=== PATIENT | male | born 1960 | race Caucasian/White ===

== ENCOUNTER 2017-04-01 11:35 | Observation (INO) | payer MEDICARE, MEDICAID ==
[2017-04-01] VITALS (9 sets, daily range): BP systolic 135–169; BP diastolic 68–92; PULSE 78–88; RESP 14–20; TEMP 97.6–98.7; O2SAT 96–98
[~2017-04-01 11:35] MED LIST: ALLO100T PO; ATOR40TA PO; COUM2.5T PO; DUONI NEB; FLUO40CA PO; PACE200T4 PO; PLAV75TA PO; POTA20IN3 PO; [UNRECOGNIZED DRUG - CODE] IV PUSH
[2017-04-01] MEDS ORDERED: OXYC1CAP PO (12:09)
[2017-04-01] MEDS ORDERED: VALG450 PO (12:09)
[2017-04-01] MEDS ORDERED: MYCO250 PO (12:09)
[2017-04-01] MEDS ORDERED: DAPT250I IV (12:09)
[2017-04-01] MEDS ORDERED: PANT40TA3 PO (12:09)
[2017-04-01] MEDS ORDERED: FLUO60TA PO (12:09)
[2017-04-01] MEDS ORDERED: CLOT10TR PO (12:09)
[2017-04-01] MEDS ORDERED: MULTTAB67 PO (12:09)
[2017-04-01] MEDS ORDERED: PRAV20TA2 PO (12:09)
[2017-04-01] MEDS ORDERED: TACR0.5 PO (12:09)
[2017-04-01] MEDS ORDERED: PRED2.5T PO (12:09)
[2017-04-01] MEDS ORDERED: CEFE2INJ5 IV (12:09)
[2017-04-01] MEDS ORDERED: HYDR-3799 PO (12:09)
[2017-04-01] MEDS ORDERED: MORPHINE SULFATE 4 MG/ML INJ IV PUSH ONE ×2 (12:30→14:30)
--- NOTE | 2017-04-01 12:35 | PD ---
HPI Chief Complaint: Chest Pain Time Seen by Provider: 12:03 Travel History International Travel<30 days: No Contact w/Intl Traveler<30days: No Traveled to known affect area: No History of Present Illness HPI 56yo M with PMH of nonischemic cardiomyopathy s/p heart transplant 10/2016 at Count includes the [facility] (Therapy Director Dr. Camacho), pancreatic cancer not on chemo (follows with oncologist at [facility]) presents to the ED with c/o chest pain and abdominal pain for 2 weeks. States chest pain is left sided, sharp, intermittent, nonradiating. Associated with sob. Abdominal pain has been constant for 2 weeks and associated with nonbloody diarrhea. Pt states abdominal pain goest from left to right. Denies any fever, cough, dysuria, hematuria. PFSH Past Medical History Hx Anticoagulant Therapy: Yes (WARFARIN) Arthritis: Yes Asthma: No Anxiety: Yes Depression: Yes Heart Rhythm Problems: Yes (AFIB) Cancer: No Cardiac Catheterization: Yes Cardiovascular Problems: Yes High Cholesterol: Yes Chest Pain: Yes Congestive Heart Failure: Yes COPD: Yes Cerebrovascular Accident: Yes (POSSIBLE, WAS PARLYSIS OF LEFT SIDE OF BODY MAR 2014) Diminished Hearing: No Endocrine: No Gastrointestinal Disorders: Yes GERD: Yes Gout: Yes Genitourinary: Yes Hypertension: Yes Immune Disorder: No Kidney Stones: No Musculoskeletal: Yes Neurologic: Yes Psychiatric: Yes Reproductive: No Respiratory: Yes Migraines: No Renal Failure: Yes (HX. ARF) Seizures: No Sleep Apnea: No Ulcer: No Past Surgical History Abdominal Surgery: Yes (APPENDECTOMY) AICD: Yes Appendectomy: Yes Arteriovenous Shunt: No Body Medical Devices: CARDIAC STENTS Cardiac Surgery: Yes (STENTS) Coronary Stent: Yes (13 STENTS) Ear Surgery: No Endocrine Surgery: No Eye Surgery: No Genitourinary Surgery: No Gynecologic Surgery: No Insulin Pump: No Joint Replacement: No Oral Surgery: No Pacemaker: Yes (DEFIBRILLATOR 2013) Other Surgery: Yes Social History Alcohol Use: No Tobacco Use: No Substance Use: No Allergies-Medications (Allergen,Severity, Reaction): Coded Allergies: diazepam (Unverified Allergy, Severe, 02/27/17) lorazepam (Unverified Allergy, Severe, 02/27/17) Reported Meds & Prescriptions Reported Meds & Active Scripts Active Reported Valcyte (Valganciclovir) 450 Mg Tab 450 Mg PO DAILY Prograf (Tacrolimus) 0.5 Mg Cap 1.5 Mg PO BID Prednisone 2.5 Mg Tab 2.5 Mg PO DAILY Pravastatin 20 Mg Tab 20 Mg PO DAILY Pantoprazole (Pantoprazole Sodium) 40 Mg Tab 40 Mg PO DAILY Oxycodone (Oxycodone HCl) 5 Mg Cap 5 Mg PO Q6H PRN Clotrimazole Crystal (Clotrimazole) 10 Mg Troc 10 Mg PO Q6HR Cellcept (Mycophenolate Mofetil) 250 Mg Cap 750 Mg PO BID Multiple Vitamin 1 Tab 1 Tab PO DAILY Hydralazine HCl 25 Mg Tablet 25 Mg PO Q8HR Fluoxetine (Fluoxetine HCl) 60 Mg Tab 60 Mg PO DAILY Daptomycin Inj (Daptomycin) 500 Mg Vial 500 Mg IV Q24H Must dilute in appropriate IV Fluid prior to administration Cefepime Inj (Cefepime HCl) 2 Gram Inj 2 Gm IV Q12HR Review of Systems Except as stated in HPI: all other systems reviewed are Neg Physical Exam Narrative GENERAL: 56yo M in moderate distress. SKIN: Focused skin assessment warm/dry. HEAD: Atraumatic. Normocephalic. EYES: Pupils equal and round. No scleral icterus. No injection or drainage. ENT: No nasal bleeding or discharge. Mucous membranes pink and moist. NECK: Trachea midline. No JVD. CARDIOVASCULAR: Regular rate and rhythm. No murmur appreciated. RESPIRATORY: No accessory muscle use. Clear to auscultation. Breath sounds equal bilaterally. GASTROINTESTINAL: Abdomen soft, +TTP LUQ, RUQ, epigastric, periumbilical. Large midline surgical scar. MUSCULOSKELETAL: No obvious deformities. No clubbing. No cyanosis. No edema. NEUROLOGICAL: Awake and alert. No obvious cranial nerve deficits. Motor grossly within normal limits. Normal speech. PSYCHIATRIC: Appropriate mood and affect; insight and judgment normal. Data Data Last Documented VS Vital Signs Date Time Temp Pulse Resp B/P (MAP) Pulse Ox O2 Delivery O2 Flow Rate FiO2 04/01/17 16:09 16 04/01/17 14:00 88 135/68 (90) 98 Room Air 04/01/17 12:01 2.00 04/01/17 11:56 97.6 Orders Orders Basic Metabolic Panel (Bmp) (04/01/17 12:24) Complete Blood Count With Diff (04/01/17 12:24) Lipase (04/01/17 12:24) Prothrombin Time / Inr (Pt) (04/01/17 12:24) Act Partial Throm Time (Ptt) (04/01/17 12:24) Urinalysis - C+S If Indicated (04/01/17 12:24) Iv Access Insert/Monitor (04/01/17 12:24) Ecg Monitoring (04/01/17 12:24) Oximetry (04/01/17 12:24) Morphine Inj (Morphine Inj) (04/01/17 12:30) Sodium Chloride 0.9% Flush (Ns Flush) (04/01/17 12:30) Electrocardiogram (04/01/17 12:24) Troponin I (04/01/17 12:24) Ct Abd/Pel W/O Iv Contrast (04/01/17 ) Ct Thorax/ Chest Wo Iv Contras (04/01/17 ) Hepatic Functional Panel (04/01/17 13:54) Morphine Inj (Morphine Inj) (04/01/17 14:30) Clotrimazole (Mycelex) (04/01/17 18:00) Fluoxetine (Prozac) (04/02/17 09:00) Hydralazine (Apresoline) (04/01/17 22:00) Mycophenolate Mofetil (Cellcept) (04/01/17 21:00) Oxycodone (Roxicodone) (04/01/17 16:45) Pantoprazole (Protonix) (04/02/17 09:00) Pravastatin (Pravachol) (04/02/17 09:00) Tacrolimus (Prograf) (04/01/17 21:00) Multivitamin (Theragran) (04/02/17 09:00) Prednisone (Deltasone) (04/02/17 09:00) Admit Order (Ed Use Only) (04/01/17 16:34) Place In Observation (04/01/17 ) Vital Signs (Adult) Q4H (04/01/17 16:33) Activity Oob With Assistance (04/01/17 16:33) Tire Care Manager / Telemetry .CONTINUOUS (04/01/17 16:33) Diet Heart Healthy (04/01/17 Dinner) Sodium Chloride 0.9% Flush (Ns Flush) (04/01/17 16:45) Sodium Chloride 0.9% Flush (Ns Flush) (04/01/17 21:00) Acetaminophen (Tylenol) (04/01/17 16:45) Ondansetron Inj (Zofran Inj) (04/01/17 16:45) Temazepam (Restoril) (04/01/17 16:45) Basic Metabolic Panel (Bmp) (04/02/17 06:00) Complete Blood Count With Diff (04/02/17 06:00) Troponin I (04/01/17 16:33) Troponin I (04/01/17 22:33) Resp Oxygen Vladimir C Titrat 1-4 L (04/01/17 ) Pt Request For Service (04/01/17 16:33) Case Management Consult (04/01/17 16:33) Enoxaparin Inj (Lovenox Inj) (04/01/17 18:00) Naloxone Inj (Narcan Inj) (04/01/17 16:45) Docusate Sodium-Senna (Brittanie-Colace) (04/01/17 21:00) Magnesium Hydroxide Liq (Milk Of Magnesi (04/01/17 16:45) Sennosides (Senokot) (04/01/17 16:45) Bisacodyl Supp (Dulcolax Supp) (04/01/17 16:45) Lactulose Liq (Lactulose Liq) (04/01/17 16:45) Morphine Inj (Morphine Inj) (04/01/17 16:45) Labs Laboratory Tests Test 04/01/17 12:30 White Blood Count 4.4 TH/MM3 Red Blood Count 4.01 MIL/MM3 Hemoglobin 12.6 GM/DL Hematocrit 37.9 % Mean Corpuscular Volume 94.5 FL Mean Corpuscular Hemoglobin 31.3 PG Mean Corpuscular Hemoglobin Concent 33.2 % Red Cell Distribution Width 14.5 % Platelet Count 288 TH/MM3 Mean Platelet Volume 7.5 FL Neutrophils (%) (Auto) 67.1 % Lymphocytes (%) (Auto) 20.6 % Monocytes (%) (Auto) 10.2 % Eosinophils (%) (Auto) 1.0 % Basophils (%) (Auto) 1.1 % Neutrophils # (Auto) 2.9 TH/MM3 Lymphocytes # (Auto) 0.9 TH/MM3 Monocytes # (Auto) 0.4 TH/MM3 Eosinophils # (Auto) 0.0 TH/MM3 Basophils # (Auto) 0.0 TH/MM3 CBC Comment AUTO DIFF Differential Total Cells Counted 100 Neutrophils % (Manual) 63 % Band Neutrophils % 7 % Lymphocytes % 17 % Monocytes % 12 % Eosinophils % 1 % Neutrophils # (Manual) 3.1 TH/MM3 Differential Comment FINAL DIFF MANUAL Platelet Estimate NORMAL Platelet Morphology Comment NORMAL Red Cell Morphology Comment NORMAL Prothrombin Time 11.4 SEC Prothromb Time International Ratio 1.0 RATIO Activated Partial Thromboplast Time 24.1 SEC Blood Urea Nitrogen 21 MG/DL Creatinine 1.78 MG/DL Random Glucose 104 MG/DL Calcium Level 8.4 MG/DL Sodium Level 143 MEQ/L Potassium Level 3.3 MEQ/L Chloride Level 112 MEQ/L Carbon Dioxide Level 19.8 MEQ/L Anion Gap 11 MEQ/L Estimat Glomerular Filtration Rate 40 ML/MIN Total Bilirubin 0.5 MG/DL Direct Bilirubin 0.1 MG/DL Indirect Bilirubin 0.4 MG/DL Aspartate Amino Transf (AST/SGOT) 19 U/L Alanine Aminotransferase (ALT/SGPT) 10 U/L Alkaline Phosphatase 58 U/L Troponin I LESS THAN 0.02 NG/ML Total Protein 6.6 GM/DL Albumin 3.5 GM/DL Lipase 94 U/L [facility] Medical Decision Making Medical Screen Exam Complete: Yes Emergency Medical Condition: Yes Interpretation(s) EKG: NSR 86bpm. RBBB. Differential Diagnosis ACS vs. pericardial effusion vs. metastatic cancer vs. Pneumonia Narrative Course 56yo M with history of heart implant and pancreatic cancer here with chest pain and abdominal pain. Labs reviewed, no leukocytosis. Troponin negative. BUN/creatinine mildly elevated at 21/1.78. CTa/p showed stranding in pancreatic head region. May reflect acute pancreatitis. However, lipase is only 94. CT chest showed groundglass opacities in posterior upper lobe that may be chronic. Pt has been given multiple IV morphine and still in a lot of pain. Also would like to observe him for serial EKG and cardiac enzymes. Discussed with Dr. Ferreira and accepted to her service. Diagnosis Primary Impression: Intractable abdominal pain Additional Impression: Chest pain Qualified Codes: R07.9 - Chest pain, unspecified Susana Zapien DO Apr 01, 2017 12:34
[2017-04-01] MEDS: SODIUM CHLORIDE 0.9% FLUSH 10 ML FLUSH IV FLUSH PRN ×2 (12:39→14:42)
--- NOTE | 2017-04-01 12:39 | EKG ---
Date Performed: 04/01/2017 Time Performed: 12:10:43 PTAGE: 56 years EKG: Sinus rhythm RIGHT BUNDLE BRANCH BLOCK AND POSSIBLE RIGHT VENTRICULAR HYPERTROPHY LEFT POSTERIOR FASCICULAR BLOCK ABNORMAL ECG NO PREVIOUS TRACING DOCTOR: Bethel Chadwick Interpretating Date/Time 04/01/2017 12:37:55
[2017-04-01 12:59] LABS: AUTOMATED NEUTROPHIL # 2.9 TH/MM3 (1.8-7.7); BASOPHIL % 1.1 % (0.0-2.0); HEMATOCRIT 37.9 % (39.0-51.0); LYMPH % 20.6 % (9.0-44.0); LYMPHOCYTE # 0.9 TH/MM3 (1.0-4.8); MEAN CELL VOLUME 94.5 FL (80.0-100.0); MEAN CORPUSCULAR HEMOGLOBIN 31.3 PG (27.0-34.0); MEAN CORPUSCULAR HGB CONC 33.2 % (32.0-36.0); MONO % 10.2 % (0.0-8.0); NEUT % 67.1 % (16.0-70.0); PLATELET COUNT 288 TH/MM3 (150-450); RED BLOOD COUNT 4.01 MIL/MM3 (4.50-5.90); RED CELL DISTRIBUTION WIDTH 14.5 % (11.6-17.2); WHITE BLOOD COUNT 4.4 TH/MM3 (4.0-11.0)
[2017-04-01 13:04] LABS: HEMO FLAGS AUTO DIFF
[2017-04-01 13:10] LABS: APTT (PATIENT) 24.1 SEC (24.3-30.1); PROTHROMBIN TIME - PATIENT 11.4 SEC (9.8-11.6)
[2017-04-01 13:19] LABS: ANION GAP 11 MEQ/L (5-15); BICARBONATE 19.8 MEQ/L (21.0-32.0); BLOOD UREA NITROGEN 21 MG/DL (7-18); CHLORIDE 112 MEQ/L (98-107); GLOMERULAR FILTRATION RATE 40 ML/MIN (>89); POTASSIUM 3.3 MEQ/L (3.5-5.1); SODIUM (NA) 143 MEQ/L (136-145)
[2017-04-01 13:41] LABS: BANDS 7 % (0-6); EOSINOPHILS 1 % (0-4); NEUTROPHIL # MANUAL DIFF 3.1 TH/MM3 (1.8-7.7); PLATELET ESTIMATE SMEAR NORMAL (NORMAL); PLATELET MORPHOLOGY NORMAL (NORMAL); POLYS (SEG NEUTROPHILS) 63 % (16-70); SCAN/DIFF FINAL DIFF MANUAL; WBC DIFF SAMPLE 100
--- NOTE | 2017-04-01 14:47 | RADRPT ---
EXAM DATE/TIME: 04/01/2017 14:15 [facility] COMPARISON: No previous studies available for comparison. INDICATIONS : Chest and abdomen pain. RADIATION DOSE: 9.96 CTDIvol (mGy) ; Combined studies - Thorax/Abdomen/Pelvis MEDICAL HISTORY : Cardiovascular disease. Renal insufficiency. SURGICAL HISTORY : Appendectomy. heart transplant. ENCOUNTER: Initial ACUITY: 1 day PAIN SCALE: 5/10 LOCATION: Bilateral chest TECHNIQUE: Volumetric scanning of the chest was performed. Using automated exposure control and adjustment of t he mA and/or kV according to patient size, radiation dose was kept as low as reasonably achievable to obtain optimal diagnostic quality images. DICOM format image data is available electronically for r eview and comparison. Follow-up recommendations for detected pulmonary nodules are based at a minimum on nodule size and pa tient risk factors according to Fleischner Society Guidelines. FINDINGS: LUNGS: Focal interstitial and associated groundglass opacities in the posterior right upper lobe. Scattered calcified granulomas in the right middle lobe and superior segment of the right lower lobe. Minimal b ilateral groundglass opacities at the bases. PLEURAE: Calcified bilateral pleural plaque posteriorly and mild associated pleural thickening near the bases. MEDIASTINUM: Left subclavian central line with tip near the atrial caval junction. The heart is grossly unremarkab le. Mediastinal calcified lymph nodes. AXILLAE: Within normal limits. No lymphadenopathy. MUSCULOSKELETAL: Prior right clavicular fracture. Fracture of the right L1 transverse process. No abnormal lytic or bl astic bony lesions. MISCELLANEOUS: The visualized upper abdominal organs demonstrate no acute abnormality. CONCLUSION: 1. Focal mixed interstitial and groundglass opacities in the posterior right upper lobe. This appears more chronic and may reflect sequela of prior inflammation/infection. However, developing or atypica l infection cannot be entirely excluded. Comparisons with prior exams would be beneficial in further evaluation. 2. Mild bibasilar groundglass opacities likely reflecting atelectasis. Again, developing or atypical infection cannot be entirely excluded. Comparisons with prior exams would be beneficial in further ev aluation. 3. Scattered granulomas and calcified mediastinal nodes consistent with prior granulomatous disease. 4. Calcified bilateral lower lobe pleural plaques. 1. Roberto Ca MD on April 01, 2017 at 14:36 Board Certified Radiologist. This report was verified electronically.
--- NOTE | 2017-04-01 15:05 | RADRPT ---
EXAM DATE/TIME: 04/01/2017 14:13 [facility] COMPARISON: No previous studies available for comparison. INDICATIONS : Chest and abdomen pain. ORAL CONTRAST: No oral contrast ingested. RADIATION DOSE: 9.96 CTDIvol (mGy) ; Combined studies - Thorax/Abdomen/Pelvis MEDICAL HISTORY : Cardiovascular disease. Hypertension. Renal insufficiency. SURGICAL HISTORY : Appendectomy. Heart transplant. ENCOUNTER: Initial ACUITY: 1 day PAIN SCALE: 5/10 LOCATION: Bilateral abdomen TECHNIQUE: Volumetric scanning of the abdomen and pelvis was performed. Using automated exposure control and ad justment of the mA and/or kV according to patient size, radiation dose was kept as low as reasonably achievable to obtain optimal diagnostic quality images. DICOM format image data is available electro nically for review and comparison. FINDINGS: LIVER: Homogeneous density without lesion. There is no dilation of the biliary tree. Gallbladder is surgica lly absent. SPLEEN: Normal size without lesion. PANCREAS: There is slight soft tissue prominence and stranding in the region of the pancreatic head. Pancreas o therwise appears unremarkable. No significant peripancreatic fluid collections. KIDNEYS: Normal in size and shape. There is no mass, stone, or hydronephrosis. ADRENAL GLANDS: Within normal limits. VASCULAR: There is no aortic aneurysm. BOWEL/MESENTERY: Colon is not distended. However, fluid is noted in large portion of the colon. No gross colonic wall thickening. Small bowel does not appear significantly distended. There is no pneumatosis or free air. There is no significant free fluid or genital fluid collection. ABDOMINAL WALL: Within normal limits. RETROPERITONEUM: There is no lymphadenopathy. BLADDER: No wall thickening or mass. REPRODUCTIVE: Within normal limits. INGUINAL: There is no lymphadenopathy or hernia. MUSCULOSKELETAL: Within normal limits for patient age. CONCLUSION: 1. Slight soft tissue prominence and stranding in the pancreatic head region. Findings are nonspecifi c but may reflect acute pancreatitis. Correlation with laboratory and clinical exam is recommended. 2. Nondistended fluid-filled colon without evidence for gross colonic wall thickening. This finding i s also nonspecific and likely not clinically significant. However, early developing colitis in immuno compromised patient cannot be entirely excluded. Clinical correlation is recommended. Roberto Ca MD on April 01, 2017 at 14:56 Board Certified Radiologist. This report was verified electronically.
[2017-04-01 15:33] LABS: INDIRECT BILIRUBIN 0.4 MG/DL (0.0-0.8); TOTAL BILIRUBIN ADULT 0.5 MG/DL (0.2-1.0)
[2017-04-01] MEDS ORDERED: IOHEXOL 350 MG/ML 10 ML VIAL (for RAD DIAG) IVCONTRAST ONE (16:37)
[2017-04-01] MEDS ORDERED: LACTULOSE SYRUP 20 GM/30 ML CUP PO PRN (16:45)
[2017-04-01] MEDS ORDERED: MAGNESIUM HYDROXIDE SUSP 30 ML CUP PO PRN (16:45)
[2017-04-01] MEDS ORDERED: TEMAZEPAM 15 MG CAP PO PRN (16:45)
[2017-04-01] MEDS ORDERED: BISACODYL 10 MG SUPP RECTAL PRN (16:45)
[2017-04-01] MEDS ORDERED: ACETAMINOPHEN 325 MG TAB PO PRN (16:45)
[2017-04-01] MEDS ORDERED: SODIUM CHLORIDE 0.9% FLUSH 10 ML FLUSH IV FLUSH PRN (16:45)
[2017-04-01] MEDS ORDERED: NALOXONE HCL 0.4 MG/ML AMP IV PUSH PRN (16:45)
[2017-04-01] MEDS ORDERED: SENNOSIDES 8.6 MG TAB PO PRN (16:45)
[2017-04-01] MEDS ORDERED: PILL SPLITTER OTHER PRN (17:00)
--- NOTE | 2017-04-01 17:24 | HHI.HP ---
[facility] Colten Key MD Admission Diagnosis Chest pain, intractable abdominal pain Diagnoses: Chief Complaint: Chest and abdominal pain Travel History International Travel<30 Days: No Contact w/Intl Traveler <30 Da: No Traveled to Known Affected Are: No History of Present Illness Written by Saji Seals, acting as scribe for Dr. Ferreira on 04/01/17 at 17:24. 56-year-old male with a past medical history of ischemic cardiomyopathy s/p heart transplant, pancreatic cancer, CVA, HTN, HLD, GERD, COPD, depression who presented for abdominal and chest pain. The patient has been having progressively worsening upper abdominal and lower chest discomfort over the past 2 weeks. He's been having associated shortness of breath with this. The pain is exacerbated by movement and touch. No exacerbation of the pain with deep breathing. He has having worsening heart palpitations recently. He has been having subjective chills. He's been having nausea and vomiting. He's been having diarrhea for the past month, history of C. difficile. The patient had a heart transplant surgery back in October and surgery for pancreatic cancer about 3 weeks after that. The patient follows with [facility] in [place] for his specialty care. He has been on IV antibiotics since his surgeries earlier this year and states he has 2 days left. Prior to 2 weeks skin the patient was able to ambulate with no difficulties, but has been mostly bedbound over the past 2 weeks secondary to pain. Review of Systems Except as stated in HPI: all other systems reviewed are Neg Past Family Social History Past Medical History History of ischemic cardiomyopathy status post heart transplant History of pancreatic cancer status post surgery Hyperlipidemia Hypertension History of CVA with mild residual left leg weakness GERD COPD Depression Past Surgical History Appendectomy Heart transplant Pancreatic cancer surgery Back surgery Reported Medications Reported Meds & Active Scripts Active Reported Valcyte (Valganciclovir) 450 Mg Tab 450 Mg PO DAILY Prograf (Tacrolimus) 0.5 Mg Cap 1.5 Mg PO BID Prednisone 2.5 Mg Tab 2.5 Mg PO DAILY Pravastatin 20 Mg Tab 20 Mg PO DAILY Pantoprazole (Pantoprazole Sodium) 40 Mg Tab 40 Mg PO DAILY Oxycodone (Oxycodone HCl) 5 Mg Cap 5 Mg PO Q6H PRN Clotrimazole Crystal (Clotrimazole) 10 Mg Troc 10 Mg PO Q6HR Cellcept (Mycophenolate Mofetil) 250 Mg Cap 750 Mg PO BID Multiple Vitamin 1 Tab 1 Tab PO DAILY Hydralazine HCl 25 Mg Tablet 25 Mg PO Q8HR Fluoxetine (Fluoxetine HCl) 60 Mg Tab 60 Mg PO DAILY Daptomycin Inj (Daptomycin) 500 Mg Vial 500 Mg IV Q24H Must dilute in appropriate IV Fluid prior to administration Cefepime Inj (Cefepime HCl) 2 Gram Inj 2 Gm IV Q12HR Allergies: Coded Allergies: diazepam (Unverified Allergy, Severe, 02/27/17) lorazepam (Unverified Allergy, Severe, 02/27/17) Active Ordered Medications Current Medications Medications (Trade) Dose Ordered Sig/Jose Route Start Time Stop Time Status Last Admin (Mycelex) 10 mg Q6HR BUCCAL 04/01/17 18:00 (PROzac) 60 mg DAILY PO 04/02/17 09:00 (Apresoline) 25 mg Q8HR PO 04/01/17 22:00 (Cellcept) 750 mg BID PO 04/01/17 21:00 (Roxicodone) 5 mg Q6H PRN PO 04/01/17 16:45 (Protonix) 40 mg DAILY PO 04/02/17 09:00 (Pravachol) 20 mg DAILY PO 04/02/17 09:00 (Prograf) 1.5 mg BID PO 04/01/17 21:00 (Theragran) 1 tab DAILY PO 04/02/17 09:00 (Deltasone) 2.5 mg DAILY PO 04/02/17 09:00 (NS Flush) 2 ml UNSCH PRN IV FLUSH 04/01/17 16:45 (NS Flush) 2 ml BID IV FLUSH 04/01/17 21:00 (Tylenol) 650 mg Q4H PRN PO 04/01/17 16:45 (Zofran Inj) 4 mg Q6H PRN IVP 04/01/17 16:45 (Restoril) 15 mg HS PRN PO 04/01/17 16:45 UNV (Lovenox Inj) 40 mg Q24H SQ 04/01/17 18:00 (Narcan Inj) 0.4 mg UNSCH PRN IV PUSH 04/01/17 16:45 (Brittanie-Colace) 1 tab BID PO 04/01/17 21:00 (Milk Of Magnesia Liq) 30 ml Q12H PRN PO 04/01/17 16:45 (Senokot) 17.2 mg Q12H PRN PO 04/01/17 16:45 (Dulcolax Supp) 10 mg DAILY PRN RECTAL 04/01/17 16:45 (Lactulose Liq) 30 ml DAILY PRN PO 04/01/17 16:45 (Morphine Inj) 2 mg Q4HR PRN IV PUSH 04/01/17 16:45 (Pill Splitter) 1 ea UNSCH PRN OTHER 04/01/17 17:00 Family History Father in a car accident Mother from multiple organ failure Reports siblings are healthy Social History Quit smoking 4 years ago, prior to that smoked half pack a day since age 11 Denies any alcohol or drug use Physical Exam Vital Signs Vital Signs Date Time Temp Pulse Resp B/P (MAP) Pulse Ox O2 Delivery O2 Flow Rate FiO2 04/01/17 16:09 16 04/01/17 14:00 88 16 135/68 (90) 98 Room Air 04/01/17 12:53 16 04/01/17 12:28 16 98 Room Air 04/01/17 12:01 87 16 98 2.00 04/01/17 12:00 87 16 142/91 (108) 98 Nasal Cannula 2.00 04/01/17 11:56 97.6 88 14 169/92 (117) 98 Physical Exam GENERAL: Well-developed well-nourished. In no acute distress. SKIN: Warm and dry. Large, healed, midline chest and abdominal surgical scar. HEENT: Normocephalic. Pupils equal and round. Mucous membranes pink and moist. CARDIOVASCULAR: Regular rate and rhythm. No murmur appreciated. RESPIRATORY: No accessory muscle use. Clear to auscultation. Breath sounds equal bilaterally. GASTROINTESTINAL: Abdomen soft, nondistended. Diffuse TTP. Bowel sounds x4. MUSCULOSKELETAL: Chest wall is exquisitely tender to palpation, left worse than right. No clubbing or cyanosis. No edema. NEUROLOGICAL: Awake and alert. No focal neurological deficits. Moves upper and lower extremities spontaneously. Normal speech. Strength 5/5. PSYCHIATRIC: Pleasant mood and affect; insight and judgment normal. Laboratory Laboratory Tests Test 04/01/17 12:30 White Blood Count 4.4 Red Blood Count 4.01 Hemoglobin 12.6 Hematocrit 37.9 Mean Corpuscular Volume 94.5 Mean Corpuscular Hemoglobin 31.3 Mean Corpuscular Hemoglobin Concent 33.2 Red Cell Distribution Width 14.5 Platelet Count 288 Mean Platelet Volume 7.5 Neutrophils (%) (Auto) 67.1 Lymphocytes (%) (Auto) 20.6 Monocytes (%) (Auto) 10.2 Eosinophils (%) (Auto) 1.0 Basophils (%) (Auto) 1.1 Neutrophils # (Auto) 2.9 Lymphocytes # (Auto) 0.9 Monocytes # (Auto) 0.4 Eosinophils # (Auto) 0.0 Basophils # (Auto) 0.0 CBC Comment AUTO DIFF Differential Total Cells Counted 100 Neutrophils % (Manual) 63 Band Neutrophils % 7 Lymphocytes % 17 Monocytes % 12 Eosinophils % 1 Neutrophils # (Manual) 3.1 Differential Comment FINAL DIFF MANUAL Platelet Estimate NORMAL Platelet Morphology Comment NORMAL Red Cell Morphology Comment NORMAL Prothrombin Time 11.4 Prothromb Time International Ratio 1.0 Activated Partial Thromboplast Time 24.1 Blood Urea Nitrogen 21 Creatinine 1.78 Random Glucose 104 Calcium Level 8.4 Sodium Level 143 Potassium Level 3.3 Chloride Level 112 Carbon Dioxide Level 19.8 Anion Gap 11 Estimat Glomerular Filtration Rate 40 Total Bilirubin 0.5 Direct Bilirubin 0.1 Indirect Bilirubin 0.4 Aspartate Amino Transf (AST/SGOT) 19 Alanine Aminotransferase (ALT/SGPT) 10 Alkaline Phosphatase 58 Troponin I LESS THAN 0.02 Total Protein 6.6 Albumin 3.5 Lipase 94 Result Diagram: 04/01/17 1230 04/01/17 1230 Imaging Last Impressions Chest CT 04/01/17 0000 Signed Impressions: Service Date/Time: Saturday, April 01, 2017 14:15 - CONCLUSION: 1. Focal mixed interstitial and groundglass opacities in the posterior right upper lobe. This appears more chronic and may reflect sequela of prior inflammation/infection. However, developing or atypical infection cannot be entirely excluded. Comparisons with prior exams would be beneficial in further evaluation. 2. Mild bibasilar groundglass opacities likely reflecting atelectasis. Again, developing or atypical infection cannot be entirely excluded. Comparisons with prior exams would be beneficial in further evaluation. 3. Scattered granulomas and calcified mediastinal nodes consistent with prior granulomatous disease. 4. Calcified bilateral lower lobe pleural plaques. 1. Roberto Ca MD Abdomen/Pelvis CT 04/01/17 0000 Signed Impressions: Service Date/Time: Saturday, April 01, 2017 14:13 - CONCLUSION: 1. Slight soft tissue prominence and stranding in the pancreatic head region. Findings are nonspecific but may reflect acute pancreatitis. Correlation with laboratory and clinical exam is recommended. 2. Nondistended fluid-filled colon without evidence for gross colonic wall thickening. This finding is also nonspecific and likely not clinically significant. However, early developing colitis in immunocompromised patient cannot be entirely excluded. Clinical correlation is recommended. MD Minda Lee VTE Risk Assessment Minda VTE Risk Assessment: Mod/High Risk (score >= 2) Caprini Risk Assessment Model Point Value = 1 Point Value = 2 Point Value = 3 Point Value = 5 Age 41-60 Minor surgery BMI > 25 kg/m2 Swollen legs Varicose veins or History of unexplained or recurrent spontaneous Oral contraceptives or hormone replacement Sepsis (< 1 month) Serious lung disease, including pneumonia (< 1 month) Abnormal pulmonary function Acute myocardial infarction Congestive heart failure (< 1 month) History of inflammatory bowel disease Medical patient at bed rest Age 61-74 Arthroscopic surgery Major open surgery (> 45 min) Laparoscopic surgery (> 45 min) Malignancy Confined to bed (> 72 hours) Immobilizing plaster cast Central venous access Age >= 75 History of VTE Family history of VTE Factor V Leiden Prothrombin [id number] Lupus anticoagulant Anticardiolipin antibodies Elevated serum homocysteine Heparin-induced thrombocytopenia Other congenital or acquired thrombophilia Stroke (< 1 month) Elective arthroplasty Hip, pelvis, or leg fracture Acute spinal cord injury (< 1 month) Prophylaxis Regimen Total Risk Factor Score Risk Level Prophylaxis Regimen 0-1 Low Early ambulation 2 Moderate Order ONE of the following: *Sequential Compression Device (SCD) *Heparin 5000 units SQ BID 3-4 Higher Order ONE of the following medications: *Heparin 5000 units SQ TID *Enoxaparin/Lovenox 40 mg SQ daily (WT < 150 kg, CrCl > 30 mL/min) *Enoxaparin/Lovenox 30 mg SQ daily (WT < 150 kg, CrCl > 10-29 mL/min) *Enoxaparin/Lovenox 30 mg SQ BID (WT < 150 kg, CrCl > 30 mL/min) AND/OR *Sequential Compression Device (SCD) 5 or more Highest Order ONE of the following medications: *Heparin 5000 units SQ TID (Preferred with Epidurals) *Enoxaparin/Lovenox 40 mg SQ daily (WT < 150 kg, CrCl > 30 mL/min) *Enoxaparin/Lovenox 30 mg SQ daily (WT < 150 kg, CrCl > 10-29 mL/min) *Enoxaparin/Lovenox 30 mg SQ BID (WT < 150 kg, CrCl > 30 mL/min) AND *Sequential Compression Device (SCD) Assessment and Plan Assessment and Plan 56-year-old male with a past medical history of ischemic cardiomyopathy s/p heart transplant, pancreatic cancer, CVA, HTN, HLD, GERD, COPD, depression who presented for abdominal and chest pain Chest pain/shortness of breath: Worse with movement and reproducible to palpation. Reviewed: EKG, no definite acute ischemic changes. Initial troponin within normal limits. Chest CT shows atelectasis, old inflammatory changes, calcified granulomas and plaques; no definite acute process. Afebrile with no leukocytosis. -Consult cardiology -Trend cardiac enzymes and EKGs -Supplemental O2 and nebs as needed -Pain control with oxycodone and IV morphine -Continue current home anti-infectives Abdominal pain/nausea, vomiting, and diarrhea: History of surgery for pancreatic cancer. Reviewed: Lipase within normal limits. Abdominal CT shows nonspecific soft tissue prominence and stranding in the pancreatic head, nonspecific fluid- filled colon with no definite colon wall thickening or inflammation. Labs for signs of dehydration. -Consult gastroenterology -Check stool for C. difficile and enteric pathogens -Antiemetics as needed -Continue PPI History of Ischemic cardiomyopathy with heart transplant: -Continue tacrolimus, prednisone, CellCept -Continue statin -Continue consider ID consult with immunocompromise state KAREN on CKD stage III: Creatinine 1.78, previously 1.44 on 10/27/15. Likely secondary to dehydration from diarrhea. -Gentle 1 L IVF Hypokalemia: Potassium 3.3. -Give oral replacement -Follow up BMP and magnesium level Hypertension: Chronic. Currently normotensive. -Continue hydralazine DVT prophylaxis: Lovenox This note was transcribed by tasha VIEYRA I, Dr. Chelsea Ferreira personally performed the history, physical exam, and medical decision making; and confirmed the accuracy of the information in the transcribed note. Authenticated by Dr. Chelsea Ferreira on 04/01/17 at 17:24. Discussed Condition With Patient, ED staff Saji Seals Apr 01, 2017 17:24 Chelsea Ferreira MD Apr 01, 2017 18:44
[2017-04-01] MEDS ORDERED: SODIUM CHLOR 0.9% 1000 ML INJ 1,000 ML IV SCH (18:00)
[2017-04-01] MEDS ORDERED: ENOXAPARIN SODIUM 40 MG/0.4 ML SYRINGE SQ SCH (18:00)
[2017-04-01] MEDS ORDERED: POTASSIUM CHLORIDE 20 MEQ CONTROLLED RELEASE TAB PO ONE (18:00)
[2017-04-01] MEDS ORDERED: RESP: ALBUTEROL 2.5 MG/IPRATROPIUM 0.5 MG NEB (PRN) NEB (18:00)
--- NOTE | 2017-04-01 18:58 | MB ---
cc: BILL CALDERON M.D., RICHARD D. MD DATE OF CONSULTATION: 04/01/2017. REASON FOR CONSULTATION: Abdominal pain, possible pancreatitis. PATIENT OF: Dr. Key. HISTORY OF PRESENT ILLNESS: Mr. Duran is a 56-year-old with fairly significant past medical history. He states he had a heart transplant in October of this year due to congestive heart failure. He said that following this he developed some problems with his pancreas and he underwent pancreatic surgery. Details are fairly sketchy. This was all done in [place] and no records are available. He states that after the surgery he had some further problems and ended up back at the [facility] for six weeks where they did all kinds of tests for his pancreas. He said initially he was told he had pancreatic cancer but then he is not sure what his ultimate diagnosis was. He states that since the surgery in October, he has been having abdominal pain and this has gotten progressively worse so he came to the hospital now here for further recommendations. None of his previous records are available for review. REVIEW OF SYSTEMS: Abdominal pain, nausea, otherwise no GI symptoms. PAST MEDICAL HISTORY: 1. Ischemic cardiomyopathy status post heart transplant. 2. Possible history of pancreatic cancer status post surgery. 3. Hyperlipidemia. 4. Hypertension. 5. CVA in the past. 6. Gastroesophageal reflux disease (GERD). 7. COPD. 8. Depression. PAST SURGICAL HISTORY: 1. Cardiac transplant. 2. Appendectomy. 3. Pancreatic surgery. 4. Back surgery. MEDICATIONS: 1. Valcyte. 2. Prograf. 3. Prednisone. 4. Atorvastatin. 5. Pantoprazole. 6. Oxycodone. 7. CellCept. 8. Hydralazine. 9. Fluoxetine. 10. Daptomycin. 11. . ALLERGIES: 1. DIAZEPAM. 2. LORAZEPAM. FAMILY HISTORY: Noncontributory. SOCIAL HISTORY: He quit smoking four years ago. No alcohol at this time. PHYSICAL EXAMINATION: GENERAL: The physical exam reveals a well-nourished man in no apparent distress. VITAL SIGNS: Stable. HEAD AND NECK: Anicteric sclerae. CHEST: Bilateral air entry with rales. ABDOMEN: Abdomen is soft. Tenderness to palpation. No guarding. No rigidity. DRUM PRINTER: Nonfocal. RECTAL: Deferred at this time. LAS: White blood cell count of 4.4, hemoglobin is 12.6. Creatinine 1.78. Liver functions are normal. Lipase is 94. IMAGING STUDIES: CT of the abdomen and pelvis reveals some fullness around the head of the pancreas otherwise unremarkable. IMPRESSION: Abdominal pain, possible pancreatitis. RECOMMENDATIONS: The most critical issue here will be to obtain previous records from [facility] and these have been requested. For now, continue present plan of care with pain control. Further recommendations to follow depending upon review of the patient's previous medical records. Thank you for this referral. MD RASHAAD Malloy/CHRISTINE /6:42 PM /6:47 PM
[2017-04-01] MEDS ORDERED: DAPTOmycin 500 MG VIAL IV SCH (20:00)
[2017-04-01] MEDS: CEFEPIME 2000 MG/NS 100 ML IV SCH ×2 (21:00)
[2017-04-01] MEDS ORDERED: CEFEPIME 2000 MG VIAL IV SCH (21:00)
[2017-04-01] MEDS ORDERED: DOCUSATE SODIUM 50 MG/SENNA 8.6 MG TAB PO SCH (21:00)
[2017-04-01] MEDS: CLOTRIMAZOLE 10 MG TROCHE BUCCAL SCH (21:45)
[2017-04-01] MEDS: hydrALAZINE HCL 25 MG TAB PO SCH (21:46)
[2017-04-01] MEDS: MYCOPHENOLATE MOFETIL 250 MG CAP PO SCH (21:51)
[2017-04-01] MEDS: DAPTOmycin INJ 500 MG in SODIUM CHLORIDE 0.9% INJ 100 ML IV SCH (21:55)
[2017-04-01] MEDS: SODIUM CHLORIDE 0.9% FLUSH 10 ML FLUSH IV FLUSH SCH (22:00)
[2017-04-01] MEDS: TACROLIMUS 0.5 MG CAP PO SCH (23:07)
[2017-04-02] VITALS (8 sets, daily range): BP systolic 98–146; BP diastolic 62–86; PULSE 68–91; RESP 17–18; TEMP 97.7–98.4; O2SAT 97–99
[2017-04-02] MEDS: CLOTRIMAZOLE 10 MG TROCHE BUCCAL SCH ×4 (01:17→18:01)
[2017-04-02] MEDS: hydrALAZINE HCL 25 MG TAB PO SCH ×3 (06:27→22:00)
--- NOTE | 2017-04-02 07:18 | HHI.FPPN ---
Subjective Remarks C/O ABDOM PAIN C/O DIARRHEA C/O WEAKNESS C/O CP WITH PALPATION TELE REVIEWED LABS REVIEWED Objective Vitals Vital Signs Date Time Temp Pulse Resp B/P (MAP) Pulse Ox O2 Delivery O2 Flow Rate FiO2 04/02/17 04:40 98.4 68 18 146/86 (106) 98 04/01/17 20:08 98.7 79 18 137/79 (98) 97 04/01/17 20:00 97 04/01/17 18:43 97.9 80 20 142/76 (98) 96 04/01/17 18:29 04/01/17 18:00 80 16 139/80 (99) 98 Nasal Cannula 2.00 04/01/17 16:42 Nasal Cannula 2.00 04/01/17 16:09 16 04/01/17 14:00 88 16 135/68 (90) 98 Room Air 04/01/17 12:53 16 04/01/17 12:28 16 98 Room Air 04/01/17 12:01 87 16 98 2.00 04/01/17 12:00 87 16 142/91 (108) 98 Nasal Cannula 2.00 04/01/17 11:56 97.6 88 14 169/92 (117) 98 Result Diagram: 04/01/17 1230 04/01/17 1230 Objective Remarks GENERAL: SKIN: Warm and dry. HEAD: Atraumatic. Normocephalic. EYES: Pupils equal and round. No scleral icterus. No injection or drainage. ENT: No nasal bleeding or discharge. Mucous membranes pink and moist. NECK: Trachea midline. No JVD. CARDIOVASCULAR: Regular rate and rhythm. RESPIRATORY: No accessory muscle use. Clear to auscultation. Breath sounds equal bilaterally. GASTROINTESTINAL: Abdomen soft, non-tender, nondistended. Hepatic and splenic margins not palpable. MUSCULOSKELETAL: Extremities without clubbing, cyanosis, or edema. No obvious deformities. NEUROLOGICAL: Awake and alert. No obvious cranial nerve deficits. Motor grossly within normal limits. 3 out of 5 muscle strength in the arms and legs. Normal speech. PSYCHIATRIC: Appropriate mood and affect; insight and judgment normal. Medications and IVs Current Medications Medications (Trade) Dose Ordered Sig/Jose Route Start Time Stop Time Status Last Admin (Mycelex) 10 mg Q6HR BUCCAL 04/01/17 18:00 04/02/17 06:27 (PROzac) 60 mg DAILY PO 04/02/17 09:00 (Apresoline) 25 mg Q8HR PO 04/01/17 22:00 04/02/17 06:27 (Cellcept) 750 mg BID PO 04/01/17 21:00 04/01/17 21:51 (Roxicodone) 5 mg Q6H PRN PO 04/01/17 16:45 04/01/17 21:46 (Protonix) 40 mg DAILY PO 04/02/17 09:00 (Pravachol) 20 mg DAILY PO 04/02/17 09:00 (Prograf) 1.5 mg BID PO 04/01/17 21:00 04/01/17 23:07 (Theragran) 1 tab DAILY PO 04/02/17 09:00 (Deltasone) 2.5 mg DAILY PO 04/02/17 09:00 (NS Flush) 2 ml UNSCH PRN IV FLUSH 04/01/17 16:45 (NS Flush) 2 ml BID IV FLUSH 04/01/17 21:00 04/01/17 22:00 (Tylenol) 650 mg Q4H PRN PO 04/01/17 16:45 (Zofran Inj) 4 mg Q6H PRN IVP 04/01/17 16:45 (Restoril) 15 mg HS PRN PO 04/01/17 16:45 UNV (Lovenox Inj) 40 mg Q24H SQ 04/01/17 18:00 04/01/17 23:08 (Narcan Inj) 0.4 mg UNSCH PRN IV PUSH 04/01/17 16:45 (Milk Of Magnesia Liq) 30 ml Q12H PRN PO 04/01/17 16:45 (Senokot) 17.2 mg Q12H PRN PO 04/01/17 16:45 (Dulcolax Supp) 10 mg DAILY PRN RECTAL 04/01/17 16:45 (Lactulose Liq) 30 ml DAILY PRN PO 04/01/17 16:45 (Morphine Inj) 2 mg Q4HR PRN IV PUSH 04/01/17 16:45 04/02/17 00:00 (Pill Splitter) 1 ea UNSCH PRN OTHER 04/01/17 17:00 (Valcyte) 450 mg DAILY PO 04/02/17 09:00 (Duoneb Neb) 1 ampule Q4HR NEB PRN NEB 04/01/17 18:00 Cefepime HCl 2000 mg/Sodium Chloride 100 ml @ 200 mls/hr Q12H IV 04/01/17 21:00 04/01/17 21:00 Daptomycin 500 mg/ Sodium Chloride 100 ml @ 200 mls/hr Q24H IV 04/01/17 22:00 04/01/17 21:55 A/P Assessment and Plan Chest pain/shortness of breath, with ischemic cardiomyopathy s/p heart transplant Abdominal pain/nausea, vomiting, and diarrhea: History of surgery for pancreatic cancer. Diarrhea History of Ischemic cardiomyopathy with heart transplant: KAREN on CKD stage III: secondary to dehydration from diarrhea. Hypokalemia: CVA, COPD, depression Hypertension PLAN: Consult cardiology cardiac enzymes and EKGs oxycodone and IV morphine iv abx Consult gastroenterology C. difficile and enteric pathogens PPI tacrolimus, prednisone, CellCept statin AM CBC, BMP, MAG Colten Key MD Apr 02, 2017 07:18
--- NOTE | 2017-04-02 08:11 | HHI.GIFU ---
Subjective Remarks Resting in bed. Continues to have abdominal pain, nausea, vomiting. Awaiting records from [facility]. States that he was hospitalized about 3-4 weeks ago there. (Pamella Blancas) Objective Vitals I&O Vital Signs Date Time Temp Pulse Resp B/P (MAP) Pulse Ox O2 Delivery O2 Flow Rate FiO2 04/02/17 07:23 97.7 84 18 112/74 (87) 98 04/02/17 04:40 98.4 68 18 146/86 (106) 98 04/01/17 20:08 98.7 79 18 137/79 (98) 97 04/01/17 20:00 97 04/01/17 18:43 97.9 80 20 142/76 (98) 96 04/01/17 18:29 04/01/17 18:00 80 16 139/80 (99) 98 Nasal Cannula 2.00 04/01/17 16:42 Nasal Cannula 2.00 04/01/17 16:09 16 04/01/17 14:00 88 16 135/68 (90) 98 Room Air 04/01/17 12:53 16 04/01/17 12:28 16 98 Room Air 04/01/17 12:01 87 16 98 2.00 04/01/17 12:00 87 16 142/91 (108) 98 Nasal Cannula 2.00 04/01/17 11:56 97.6 88 14 169/92 (117) 98 Laboratory Laboratory Tests Test 04/01/17 12:30 04/01/17 18:40 04/01/17 23:54 White Blood Count 4.4 Red Blood Count 4.01 Hemoglobin 12.6 Hematocrit 37.9 Mean Corpuscular Volume 94.5 Mean Corpuscular Hemoglobin 31.3 Mean Corpuscular Hemoglobin Concent 33.2 Red Cell Distribution Width 14.5 Platelet Count 288 Mean Platelet Volume 7.5 Neutrophils (%) (Auto) 67.1 Lymphocytes (%) (Auto) 20.6 Monocytes (%) (Auto) 10.2 Eosinophils (%) (Auto) 1.0 Basophils (%) (Auto) 1.1 Neutrophils # (Auto) 2.9 Lymphocytes # (Auto) 0.9 Monocytes # (Auto) 0.4 Eosinophils # (Auto) 0.0 Basophils # (Auto) 0.0 CBC Comment AUTO DIFF Differential Total Cells Counted 100 Neutrophils % (Manual) 63 Band Neutrophils % 7 Lymphocytes % 17 Monocytes % 12 Eosinophils % 1 Neutrophils # (Manual) 3.1 Differential Comment FINAL DIFF MANUAL Platelet Estimate NORMAL Platelet Morphology Comment NORMAL Red Cell Morphology Comment NORMAL Prothrombin Time 11.4 Prothromb Time International Ratio 1.0 Activated Partial Thromboplast Time 24.1 Blood Urea Nitrogen 21 Creatinine 1.78 Random Glucose 104 Calcium Level 8.4 Sodium Level 143 Potassium Level 3.3 Chloride Level 112 Carbon Dioxide Level 19.8 Anion Gap 11 Estimat Glomerular Filtration Rate 40 Total Bilirubin 0.5 Direct Bilirubin 0.1 Indirect Bilirubin 0.4 Aspartate Amino Transf (AST/SGOT) 19 Alanine Aminotransferase (ALT/SGPT) 10 Alkaline Phosphatase 58 Troponin I LESS THAN 0.02 0.02 0.02 Total Protein 6.6 Albumin 3.5 Lipase 94 Imaging Last Impressions Chest CT 04/01/17 0000 Signed Impressions: Service Date/Time: Saturday, April 01, 2017 14:15 - CONCLUSION: 1. Focal mixed interstitial and groundglass opacities in the posterior right upper lobe. This appears more chronic and may reflect sequela of prior inflammation/infection. However, developing or atypical infection cannot be entirely excluded. Comparisons with prior exams would be beneficial in further evaluation. 2. Mild bibasilar groundglass opacities likely reflecting atelectasis. Again, developing or atypical infection cannot be entirely excluded. Comparisons with prior exams would be beneficial in further evaluation. 3. Scattered granulomas and calcified mediastinal nodes consistent with prior granulomatous disease. 4. Calcified bilateral lower lobe pleural plaques. 1. Roberto Ca MD Abdomen/Pelvis CT 04/01/17 0000 Signed Impressions: Service Date/Time: Saturday, April 01, 2017 14:13 - CONCLUSION: 1. Slight soft tissue prominence and stranding in the pancreatic head region. Findings are nonspecific but may reflect acute pancreatitis. Correlation with laboratory and clinical exam is recommended. 2. Nondistended fluid-filled colon without evidence for gross colonic wall thickening. This finding is also nonspecific and likely not clinically significant. However, early developing colitis in immunocompromised patient cannot be entirely excluded. Clinical correlation is recommended. Roberto Ca MD Physical Exam HEENT: Normocephalic; atraumatic; no jaundice. CHEST: CTA CARDIAC: RRR ABDOMEN: Soft, mildly, mild to moderate tenderness; no hepatosplenomegaly; bowel sounds are present in all four quadrants. EXTREMITIES: No clubbing, cyanosis, or edema. SKIN: Normal; no rash; no jaundice. FRONT EDGER: No focal deficits; alert and oriented times three. (Pamella Blancas) Assessment and Plan Plan ASSESSMENT: - Abdominal pain, possible pancreatitis. Pt states that he was hospitalized at [facility] 3-4 weeks ago and developed some complications requiring some procedure on the pancreas. Records have been requested. CT Scan abdomen and pelvis without IV contrast (04/01/17)---> Slightly soft tissue prominence and stranding in the pancreatic head region. Findings are nonspecific but may reflux acute pancreatitis. Correlation with laboratory and clinical exam is recommended, nondistended fluid filled colon without evidence for gross colonic wall thickening. This finding is also nonspecific and likely not clinically significant. However, early developing colitis in immunocompromised patient cannot be entirely excluded. Clinical correlation is recommended. LFT, Lipase unremarkable. Clinically, still with diffuse mild to moderate tenderness on exam and c/o abdominal pain with associated n/ v. Await records. PPI. Zofran prn. - Diarrhea. CT as above. Will get stool studies. - GERD. PPI - Anemia, normocytic. 12.6/37.9 yesterday. No obvious blood loss. - Ischemic cardiomyopathy, s/p heart transplant. Per attending. Cellcept, prograf - HTN, Hyperlipidemia, COPD, Depression per attending. PLAN: - Await records from [facility] - Cont. PPI - Stool for CDiff and stool studies - Monitor labs - Further recommendations to follow based on results of above - Pt seen and examined by Dr. Flor and myself and this note is written on his behalf (Pamella Blancas) Physician Comments Patient seen and examined Agree with above Monitor labs Continue with current supportive care We will pursue endoscopic ultrasound to further investigate the pancreas to be done tomorrow (Frankie Flor MD) Pamella Blancas Apr 02, 2017 08:11 Frankie Flor MD Apr 02, 2017 22:32
[2017-04-02] MEDS: CEFEPIME 2000 MG/NS 100 ML IV SCH ×4 (08:40→21:42)
[2017-04-02] MEDS: PANTOPRAZOLE SOD 40 MG DELAYED RELEASE TAB PO SCH (08:41)
[2017-04-02] MEDS: TACROLIMUS 0.5 MG CAP PO SCH ×2 (08:41→22:12)
[2017-04-02] MEDS: FLUoxetine HCL 20 MG CAP PO SCH (08:41)
[2017-04-02] MEDS: PRAVASTATIN SOD 20 MG TAB PO SCH (08:42)
[2017-04-02] MEDS: predniSONE 5 MG TAB PO SCH (08:42)
[2017-04-02] MEDS: MYCOPHENOLATE MOFETIL 250 MG CAP PO SCH ×2 (08:42→22:12)
[2017-04-02] MEDS: MULTIVITAMIN TAB PO SCH (08:42)
[2017-04-02] MEDS: MORPHINE SULFATE 4 MG/ML INJ IV PUSH PRN ×4 (08:43→18:48)
[2017-04-02] MEDS: SODIUM CHLORIDE 0.9% FLUSH 10 ML FLUSH IV FLUSH SCH ×2 (08:43→21:45)
[2017-04-02] MEDS: ONDANSETRON HCL 4 MG/2 ML VIAL IVP PRN (08:51)
[2017-04-02 10:04] LABS: HEMATOCRIT 32.9 % (39.0-51.0); MEAN CELL VOLUME 94.7 FL (80.0-100.0); MEAN CORPUSCULAR HEMOGLOBIN 31.5 PG (27.0-34.0); MEAN CORPUSCULAR HGB CONC 33.3 % (32.0-36.0); PLATELET COUNT 263 TH/MM3 (150-450); RED BLOOD COUNT 3.48 MIL/MM3 (4.50-5.90); RED CELL DISTRIBUTION WIDTH 13.9 % (11.6-17.2); WHITE BLOOD COUNT 3.7 TH/MM3 (4.0-11.0)
[2017-04-02 10:09] LABS: HEMO FLAGS AUTO DIFF
[2017-04-02 10:23] LABS: MAGNESIUM 1.3 MG/DL (1.5-2.5); POTASSIUM 3.6 MEQ/L (3.5-5.1)
[2017-04-02 10:55] LABS: NEUTROPHIL # MANUAL DIFF 2.4 TH/MM3 (1.8-7.7); POLYS (SEG NEUTROPHILS) 63 % (16-70)
[2017-04-02 10:58] LABS: BANDS 1 % (0-6); BASOPHILS 2 % (0-2); DOHLE BODIES PRESENT (NONE SEEN); EOSINOPHILS 1 % (0-4); METAMYELOCYTES 2 % (0-1); OVALOCYTES 1+ (NORMAL); WBC DIFF SAMPLE 100
[2017-04-02 10:59] LABS: ACANTHOCYTES OCC (NORMAL); SCAN/DIFF FINAL DIFF MANUAL
[2017-04-02 11:00] LABS: HELMET CELLS OCC (NORMAL); PLATELET ESTIMATE SMEAR NORMAL (NORMAL); PLATELET MORPHOLOGY NORMAL (NORMAL)
[2017-04-02] MEDS ORDERED: ENOXAPARIN SODIUM 80 MG/0.8 ML SYRINGE SQ ONE ×2 (13:00→14:15)
[2017-04-02] MEDS ORDERED: MAGNESIUM OXIDE 400 MG TAB PO ONE (13:00)
[2017-04-02] MEDS ORDERED: ASPIRIN EC 81 MG TABEC PO ONE (13:15)
--- NOTE | 2017-04-02 13:42 | MB ---
cc: RAULITO CUELLAR M.D. DATE OF CONSULTATION: 04/02/2017 HISTORY OF PRESENT ILLNESS Frank is a very pleasant 56-year-old gentleman status post heart transplant for severe cardiomyopathy, followed at [facility], also a history of PE. I have not seen him since his heart transplant which he had back in the Spring. He tells me that for the last 2 weeks he has been developing severe shortness of breath, dyspnea on exertion with minimal activities of daily living and also left-sided chest pain. He called the [facility] and he was informed by them to go to the [facility] which he did. He otherwise denies any fevers, chills, cough, GI or bleeding, PND, orthopnea, syncope or dizziness. PAST MEDICAL HISTORY 1. Pancreatic cancer; follows with an oncologist at [facility]. 2. Anxiety. 3. History of atrial fibrillation. 4. Hyperlipidemia. 5. Chest pain. 6. CVA. 7. Left hemiparesis. 8. Gout. 9. Hypertension. 10.Acute renal failure. 11.Appendectomy. 12.Defibrillator placement. 13.Multiple PCIs prior to heart transplant. 14.Pulmonary embolus. SOCIAL HISTORY Denies tobacco or alcohol use. ALLERGIES 1. DIAZEPAM. 2. LORAZEPAM. MEDICATIONS Medications prior to admission: 1. Valganciclovir 450 mg daily. 2. Prograf 1.5 mg b.i.d. 3. Prednisone 2.5 mg daily. 4. Pravastatin 20 mg daily. 5. Pantoprazole 40 mg p.o. daily. 6. Oxycodone. 7. Clotrimazole. 8. CellCept 750 mg capsule p.o. b.i.d. 9. Multivitamins. 10.Hydralazine 25, q.8h. 11.Fluoxetine 60 mg daily. 12.Daptomycin 500 mg IV q.24h. 13.Cefepime 2 grams IV q.12h. Medications in the hospital: 1. Prozac 60 mg daily. 2. Pantoprazole 40 mg daily. 3. Prevacid 20 mg daily. 4. Multivitamins 1 mg daily. 5. Prednisone 2.5 mg daily. 6. Valcyte 450 mg daily. 7. Hydralazine 25 mg q.8h. 8. Daptomycin IV. 9. CellCept 750 mg b.i.d. 10.Tacrolimus 1.5 mg b.i.d. 11.Cefepime 2000 mg IV q.12h. 12.Lovenox 40, subcu q.24h. PHYSICAL EXAMINATION VITAL SIGNS: Blood pressure 110/69, pulse 74, respiratory rate 18, temperature 97.9. GENERAL: He is alert and oriented x3, in no acute distress. NECK: Supple. No JVD. No bruit. CARDIOVASCULAR: S1, S2. No murmurs, rubs or gallops. LUNGS: Clear to auscultation bilaterally. ABDOMEN: Soft, nontender, nondistended. Positive bowel sounds. EXTREMITIES: No lower extremity edema. LABORATORY DATA INR is 1.0. White count 3.7, hemoglobin 10.9, hematocrit 32.9, platelet count 263. Sodium 143, potassium 3.6, chloride 114, BUN 16, creatinine 1.22. Troponin is 0.2 x3. Magnesium 1.3. LFTs normal. IMAGING CT of the chest: Focal mixed interstitial and ground-glass opacities posterior right upper lobe. Mild bibasilar ground-glass opacities. Scattered granulomas and calcified mediastinal nodes consistent with prior granulomatous disease. Calcified bilateral lower lobe pleural plaques. Abdomen and pelvis CT: Slight soft tissue prominence and stranding in the pancreatic head region. Findings are nonspecific and may reflect acute pancreatitis. Nondistended fluid-filled colon without evidence of gross colonic wall thickening. EKG EKG shows normal sinus rhythm at 86 beats per minute, right bundle branch block, right axis deviation, prolonged QT interval of 469 milliseconds. DIAGNOSIS 1. Acute onset dyspnea. 2. History of pulmonary embolus. 3. Pancreatic cancer. 4. Status post heart transplant. 5. [place] Heart Association class III-IV symptoms. 6. History of atrial fibrillation. 7. Right bundle branch block. 8. Neutropenia. 9. Anemia. DISCUSSION The patient has a history of PE, atrial fibrillation and ongoing pancreatic cancer. I do think he is high risk for having PE as etiology of his symptoms. Therefore, I think he should be empirically anticoagulated with full-dose Lovenox and get a CT of the chest to rule out PE. Also check BNP as well to assess more objectively the etiology of his acute onset dyspnea. Further recommendations based on the results of the CT of the chest. MD DANNY Langley/JOAN /12:49 PM /1:16 PM
[2017-04-02] MEDS: MAGNESIUM SULFATE 1 GM PREMIX 100 ML IV SCH ×2 (14:13→15:56)
--- NOTE | 2017-04-02 14:19 | EKG ---
Date Performed: 04/02/2017 Time Performed: 02:25:49 PTAGE: 56 years EKG: Sinus rhythm RIGHT BUNDLE BRANCH BLOCK LEFT POSTERIOR FASICULAR BLOCK ABNORMAL ECG PREVIOUS TRACING : 04/02/2017 02.25 No significant change from previous tracing noted. DOCTOR: Bethel Chadwick Interpretating Date/Time 04/02/2017 14:17:39
--- NOTE | 2017-04-02 18:24 | RADRPT ---
EXAM DATE/TIME: 04/02/2017 17:05 [place] COMPARISON: CT THORAX W/O CONTRAST, April 01, 2017, 14:15. INDICATIONS : Left sided chest pain with shortness of breath for two weeks IV CONTRAST: 73 cc Omnipaque 350 (iohexol) IV RADIATION DOSE: 7.96 CTDIvol (mGy) MEDICAL HISTORY : Cerebrovascular disease. Cardiovascular disease Chronic obstructive pulmonary disease. Hypertension pancreatic cancer SURGICAL HISTORY : Appendectomy. Pacemaker. Heart transplant ENCOUNTER: Initial ACUITY: 2 weeks PAIN SCALE: 8/10 LOCATION: Left chest TECHNIQUE: Volumetric scanning of the chest was performed using a pulmonary embolism protocol MIP images were re constructed. Using automated exposure control and adjustment of the mA and/or kV according to patien t size, radiation dose was kept as low as reasonably achievable to obtain optimal diagnostic quality images. DICOM format image data is available electronically for review and comparison. Follow-up recommendations for detected pulmonary nodules are based at a minimum on nodule size and pa tient risk factors according to Fleischner Society Guidelines. FINDINGS: The heart is enlarged. Calcified granulomatous lymph nodes are noted within the pretracheal and subc arinal mediastinum. Calcified granulomas are also noted within the right lung. Scattered interstitia l infiltrate is noted within the right posterior upper lung field which is nonspecific. There is a n oncalcified nodular density within the right lower lobe posteriorly measuring 9 mm which is indetermi glenn. PET/CT scan and/or follow-up CT of the chest in three months will be helpful for further hermilo cterization of this indeterminate nodule. No pulmonary emboli are noted. Posterior pleural thickeni ng and calcified pleural plaques are noted bilaterally. The heart is enlarged. A left-sided central line has its tip at the junction of the superior vena cava and right atrium. No pleural effusion is n oted. Bibasilar atelectasis and/or scarring is stable. CONCLUSION: 1. 9 mm noncalcified nodule within the right lower lobe posteriorly which is indeterminate. PET/CT s can and/or follow-up CT of the chest in three months is recommended for this indeterminate nodule. 2. Scattered bibasilar interstitial infiltrates as well as right upper lobe posterior interstitial in filtrate which are nonspecific. 3. Cardiomegaly. 4. Granulomatous changes involving the right lung and pretracheal as well as subcarinal mediastinum. 5. No evidence of pulmonary embolism. 6. Posterior pleural thickening and pleural calcifications bilaterally. Nelson Bird MD on April 02, 2017 at 18:06 Board Certified Radiologist. This report was verified electronically.
[2017-04-02] MEDS: MAGNESIUM OXIDE 400 MG TAB PO SCH (21:42)
[2017-04-03] VITALS (13 sets, daily range): BP systolic 88–122; BP diastolic 52–71; PULSE 72–79; RESP 17–19; TEMP 97.9–98.5; O2SAT 96–99
[2017-04-03] MEDS: DAPTOmycin INJ 500 MG in SODIUM CHLORIDE 0.9% INJ 100 ML IV SCH (00:46)
[2017-04-03] MEDS ORDERED: ENOXAPARIN SODIUM 80 MG/0.8 ML SYRINGE SQ SCH (02:00)
[2017-04-03] MEDS: CLOTRIMAZOLE 10 MG TROCHE BUCCAL SCH ×4 (06:00→19:32)
[2017-04-03] MEDS: hydrALAZINE HCL 25 MG TAB PO SCH ×3 (06:00→22:30)
[2017-04-03 07:33] LABS: MEAN CELL VOLUME 93.9 FL (80.0-100.0); MEAN CORPUSCULAR HEMOGLOBIN 31.8 PG (27.0-34.0); MEAN CORPUSCULAR HGB CONC 33.9 % (32.0-36.0); PLATELET COUNT 260 TH/MM3 (150-450); RED CELL DISTRIBUTION WIDTH 14.3 % (11.6-17.2); WHITE BLOOD COUNT 3.5 TH/MM3 (4.0-11.0)
[2017-04-03 07:36] LABS: HEMO FLAGS AUTO DIFF
[2017-04-03 07:49] LABS: BICARBONATE 23.8 MEQ/L (21.0-32.0); MAGNESIUM 1.8 MG/DL (1.5-2.5); POTASSIUM 3.7 MEQ/L (3.5-5.1)
[2017-04-03] MEDS: CEFEPIME 2000 MG/NS 100 ML IV SCH ×4 (08:32→22:29)
[2017-04-03] MEDS: PANTOPRAZOLE SOD 40 MG DELAYED RELEASE TAB PO SCH (08:32)
[2017-04-03] MEDS: TACROLIMUS 0.5 MG CAP PO SCH ×2 (08:33→22:29)
[2017-04-03] MEDS: MULTIVITAMIN TAB PO SCH (08:33)
[2017-04-03] MEDS: FLUoxetine HCL 20 MG CAP PO SCH (08:33)
[2017-04-03] MEDS: PRAVASTATIN SOD 20 MG TAB PO SCH (08:34)
[2017-04-03] MEDS: MAGNESIUM OXIDE 400 MG TAB PO SCH ×2 (08:34→22:29)
[2017-04-03] MEDS: predniSONE 5 MG TAB PO SCH (08:35)
[2017-04-03] MEDS: SODIUM CHLORIDE 0.9% FLUSH 10 ML FLUSH IV FLUSH SCH ×2 (08:36→22:29)
[2017-04-03 08:56] LABS: ACANTHOCYTES OCC (NORMAL); BANDS 8 % (0-6); BASOPHILS 2 % (0-2); EOSINOPHILS 2 % (0-4); MYELOCYTES 1 % (0-0); NEUTROPHIL # MANUAL DIFF 2.7 TH/MM3 (1.8-7.7); OVALOCYTES 1+ (NORMAL); PLATELET ESTIMATE SMEAR NORMAL (NORMAL); PLATELET MORPHOLOGY NORMAL (NORMAL); POLYS (SEG NEUTROPHILS) 69 % (16-70); WBC DIFF SAMPLE 100
[2017-04-03 08:57] LABS: SCAN/DIFF FINAL DIFF MANUAL
[2017-04-03] MEDS ORDERED: ASPIRIN EC 81 MG TABEC PO SCH (09:00)
--- NOTE | 2017-04-03 09:24 | HHI.FPPN ---
Subjective Remarks WAS GOING AMA YESTERDAY. STAYED IN. D/W AND PT. C/O CP C/O ABDOM PAIN C/O DIARRHEA D/W PUBLIC HEALTH ADVISOR REVIEWED Objective Vitals Vital Signs Date Time Temp Pulse Resp B/P (MAP) Pulse Ox O2 Delivery O2 Flow Rate FiO2 04/03/17 08:44 98 21 04/03/17 07:40 98.5 76 18 122/71 (88) 96 04/03/17 05:35 21 04/03/17 05:14 98.3 78 19 106/63 (77) 97 04/03/17 04:15 74 04/03/17 00:36 98.1 75 18 106/58 (74) 99 04/03/17 00:10 77 04/03/17 00:07 93/53 (66) 04/03/17 00:02 98.0 77 17 88/52 (64) 97 04/02/17 20:20 84 04/02/17 19:11 97.8 91 18 98/62 (74) 99 04/02/17 18:53 12 04/02/17 15:33 98.1 78 17 104/66 (79) 98 04/02/17 12:31 97 04/02/17 11:26 97.9 74 18 110/69 (83) 98 I/O 04/02/17 04/02/17 04/02/17 04/03/17 04/03/17 04/03/17 07:00 15:00 23:00 07:00 15:00 23:00 Intake Total 100 ml 100 ml Output Total 825 ml Balance 100 ml 100 ml -825 ml Intake IV Total 100 ml 100 ml Output Urine Total 825 ml Result Diagram: 04/03/1770404/03/17704 Objective Remarks GENERAL: SKIN: Warm and dry. HEAD: Atraumatic. Normocephalic. EYES: Pupils equal and round. No scleral icterus. No injection or drainage. ENT: No nasal bleeding or discharge. Mucous membranes pink and moist. NECK: Trachea midline. No JVD. CARDIOVASCULAR: Regular rate and rhythm. RESPIRATORY: No accessory muscle use. Clear to auscultation. Breath sounds equal bilaterally. GASTROINTESTINAL: Abdomen soft, non-tender, nondistended. Hepatic and splenic margins not palpable. MUSCULOSKELETAL: Extremities without clubbing, cyanosis, or edema. No obvious deformities. NEUROLOGICAL: Awake and alert. No obvious cranial nerve deficits. Motor grossly within normal limits. 3 out of 5 muscle strength in the arms and legs. Normal speech. PSYCHIATRIC: Appropriate mood and affect; insight and judgment normal. Medications and IVs Current Medications Medications (Trade) Dose Ordered Sig/Jose Route Start Time Stop Time Status Last Admin (Mycelex) 10 mg Q6HR BUCCAL 04/01/17 18:00 04/02/17 18:01 (PROzac) 60 mg DAILY PO 04/02/17 09:00 04/03/17 08:33 (Apresoline) 25 mg Q8HR PO 04/01/17 22:00 04/02/17 14:13 (Cellcept) 750 mg BID PO 04/01/17 21:00 04/02/17 22:12 (Roxicodone) 5 mg Q6H PRN PO 04/01/17 16:45 04/03/17 08:35 (Protonix) 40 mg DAILY PO 04/02/17 09:00 04/03/17 08:32 (Pravachol) 20 mg DAILY PO 04/02/17 09:00 04/03/17 08:34 (Prograf) 1.5 mg BID PO 04/01/17 21:00 04/03/17 08:33 (Theragran) 1 tab DAILY PO 04/02/17 09:00 04/03/17 08:33 (Deltasone) 2.5 mg DAILY PO 04/02/17 09:00 04/03/17 08:35 (NS Flush) 2 ml UNSCH PRN IV FLUSH 04/01/17 16:45 (NS Flush) 2 ml BID IV FLUSH 04/01/17 21:00 04/03/17 08:36 (Tylenol) 650 mg Q4H PRN PO 04/01/17 16:45 (Zofran Inj) 4 mg Q6H PRN IVP 04/01/17 16:45 04/02/17 08:51 (Narcan Inj) 0.4 mg UNSCH PRN IV PUSH 04/01/17 16:45 (Milk Of Magnesia Liq) 30 ml Q12H PRN PO 04/01/17 16:45 (Senokot) 17.2 mg Q12H PRN PO 04/01/17 16:45 (Dulcolax Supp) 10 mg DAILY PRN RECTAL 04/01/17 16:45 (Lactulose Liq) 30 ml DAILY PRN PO 04/01/17 16:45 (Morphine Inj) 2 mg Q4HR PRN IV PUSH 04/01/17 16:45 04/02/17 18:48 (Pill Splitter) 1 ea UNSCH PRN OTHER 04/01/17 17:00 (Valcyte) 450 mg DAILY PO 04/02/17 09:00 04/03/17 08:32 (Duoneb Neb) 1 ampule Q4HR NEB PRN NEB 04/01/17 18:00 Cefepime HCl 2000 mg/Sodium Chloride 100 ml @ 200 mls/hr Q12H IV 04/01/17 21:00 04/03/17 08:32 Daptomycin 500 mg/ Sodium Chloride 100 ml @ 200 mls/hr Q24H IV 04/01/17 22:00 04/03/17 00:46 (Lovenox Inj) 70 mg Q12H SQ 04/03/17 02:00 (Mag-Ox) 400 mg Q12HR PO 04/02/17 21:00 04/03/17 08:34 (Ecotrin Ec) 81 mg DAILY PO 04/03/17 09:00 04/03/17 08:32 A/P Assessment and Plan Chest pain/shortness of breath, with ischemic cardiomyopathy s/p heart transplant Abdominal pain/nausea, vomiting, and diarrhea: History of surgery for pancreatic cancer. Diarrhea History of Ischemic cardiomyopathy with heart transplant: KAREN on CKD stage III: secondary to dehydration from diarrhea. Hypokalemia: CVA, COPD, depression Hypertension PLAN: Consult cardiology cardiac enzymes and EKGs oxycodone and IV morphine iv abx Consult gastroenterology C. difficile and enteric pathogens PPI tacrolimus, prednisone, CellCept statin AM CBC, BMP, MAG Colten Key MD Apr 03, 2017 09:24
[2017-04-03] MEDS: MORPHINE SULFATE 4 MG/ML INJ IV PUSH PRN ×2 (09:50→16:00)
[2017-04-03 12:30] LABS: C. DIFF EPI 027 PRESUMPTIVE NEGATIVE (NEGATIVE)
[2017-04-03] MEDS ORDERED: PROPOFOL 200 MG/20 ML AMP IV PUSH ONE (12:44)
--- NOTE | 2017-04-03 13:13 | PD.PROCEDR ---
GI Procedure REFERRING PHYSICIAN all PROCEDURE PERFORMED Endoscopic ultrasound INDICATION FOR PROCEDURE Abnormal imaging of the pancreas, abdominal pain PROCEDURE: The procedure, risks and benefits were discussed with Mr. Duran and informed consent was obtained. Anesthesia sedated him with Diprivan. He was placed in the left lateral decubitus position. EUS: The Pentax videoscope was introduced through the oropharynx and advanced to the second portion of the duodenum under direct visualization. FINDINGS: The endoscopic ultrasound of the pancreas from head to tail reveals normal pancreatic parenchyma with no irregularities with normal pancreatic duct Common bile duct appears to be within normal limits with no filling defects No lymphadenopathy noted ESTIMATED BLOOD LOSS: None SPECIMENS REMOVED: None COMPLICATIONS: None IMPRESSION: Unremarkable endoscopic ultrasound of the pancreas and biliary system PLAN: Continue with current supportive care Frankie Flor MD Apr 03, 2017 13:12
--- NOTE | 2017-04-03 13:46 | PD.CARD.PN ---
Subjective Subjective Remarks alert in nad Objective Vital Signs / I&O Vital Signs Date Time Temp Pulse Resp B/P (MAP) Pulse Ox O2 Delivery O2 Flow Rate FiO2 04/03/17 12:53 97.1 72 16 120/73 (89) 99 04/03/17 08:44 98 21 04/03/17 07:40 98.5 76 18 122/71 (88) 96 04/03/17 05:35 21 04/03/17 05:14 98.3 78 19 106/63 (77) 97 04/03/17 04:15 74 04/03/17 00:36 98.1 75 18 106/58 (74) 99 04/03/17 00:10 77 04/03/17 00:07 93/53 (66) 04/03/17 00:02 98.0 77 17 88/52 (64) 97 04/02/17 20:20 84 04/02/17 19:11 97.8 91 18 98/62 (74) 99 04/02/17 18:53 12 04/02/17 15:33 98.1 78 17 104/66 (79) 98 I/O 04/02/17 04/02/17 04/02/17 04/03/17 04/03/17 04/03/17 07:00 15:00 23:00 07:00 15:00 23:00 Intake Total 100 ml 100 ml 600 ml Output Total 825 ml Balance 100 ml 100 ml -225 ml Intake IV Total 100 ml 100 ml Other 600 ml Output Urine Total 825 ml Laboratory GENERAL: SKIN: Warm and dry. HEAD: Normocephalic. EYES: No scleral icterus. No injection or drainage. NECK: Supple, trachea midline. No JVD or lymphadenopathy. CARDIOVASCULAR: Regular rate and rhythm without murmurs, gallops, or rubs. RESPIRATORY: Breath sounds equal bilaterally. No accessory muscle use. GASTROINTESTINAL: Abdomen soft, non-tender, nondistended. MUSCULOSKELETAL: No cyanosis, or edema. BACK: Nontender without obvious deformity. No CVA tenderness. Laboratory Tests Test 04/03/17 07:05 04/03/17 09:00 White Blood Count 3.5 TH/MM3 Red Blood Count 3.20 MIL/MM3 Hemoglobin 10.2 GM/DL Hematocrit 30.0 % Mean Corpuscular Volume 93.9 FL Mean Corpuscular Hemoglobin 31.8 PG Mean Corpuscular Hemoglobin Concent 33.9 % Red Cell Distribution Width 14.3 % Platelet Count 260 TH/MM3 Mean Platelet Volume 7.2 FL CBC Comment AUTO DIFF Differential Total Cells Counted 100 Neutrophils % (Manual) 69 % Band Neutrophils % 8 % Lymphocytes % 15 % Monocytes % 3 % Eosinophils % 2 % Basophils % 2 % Neutrophils # (Manual) 2.7 TH/MM3 Myelocytes 1 % Differential Comment FINAL DIFF MANUAL Platelet Estimate NORMAL Platelet Morphology Comment NORMAL Ovalocytes 1+ Acanthocytes OCC Blood Urea Nitrogen 14 MG/DL Creatinine 1.32 MG/DL Random Glucose 89 MG/DL Calcium Level 7.8 MG/DL Magnesium Level 1.8 MG/DL Sodium Level 144 MEQ/L Potassium Level 3.7 MEQ/L Chloride Level 114 MEQ/L Carbon Dioxide Level 23.8 MEQ/L Anion Gap 6 MEQ/L Estimat Glomerular Filtration Rate 56 ML/MIN B-Type Natriuretic Peptide 234 PG/ML Assessment and Plan Problem List: (1) Heart transplant status ICD Codes: Z94.1 - Heart transplant status (2) CHF (congestive heart failure) ICD Codes: I50.9 - Heart failure, unspecified Status: Acute Assessment and Plan 1.) Heart transplant - bnp mildly elevated, may need transplant rejection med adjustment, ok to dcfrom cv standpoint, f/u with me 04/04/17, f/u [facility] transplant arnulfo, d/w patient Shaan Lozano MD Apr 03, 2017 13:46
[2017-04-03] MEDS: MYCOPHENOLATE MOFETIL 250 MG CAP PO SCH ×2 (14:37→22:29)
[2017-04-03] MEDS: ONDANSETRON HCL 4 MG/2 ML VIAL IVP PRN (15:56)
[2017-04-03] MEDS ORDERED: ENOXAPARIN SODIUM 40 MG/0.4 ML SYRINGE SQ SCH (16:00)
[2017-04-04] VITALS: PULSE 77
[2017-04-04] MEDS: DAPTOmycin INJ 500 MG in SODIUM CHLORIDE 0.9% INJ 100 ML IV SCH (00:11)
[2017-04-04] MEDS: MORPHINE SULFATE 4 MG/ML INJ IV PUSH PRN (00:20)
[2017-04-04 04:00] VITALS: PULSE 69
[2017-04-04 04:15] VITALS: BP 104/58; PULSE 72; RESP 17; TEMP 98; O2SAT 94
[2017-04-04] MEDS: hydrALAZINE HCL 25 MG TAB PO SCH (06:00)
[2017-04-04] MEDS: CLOTRIMAZOLE 10 MG TROCHE BUCCAL SCH ×2 (06:00)
[2017-04-04 08:14] LABS: HEMATOCRIT 30.4 % (39.0-51.0); MEAN CELL VOLUME 94.9 FL (80.0-100.0); MEAN CORPUSCULAR HEMOGLOBIN 30.9 PG (27.0-34.0); MEAN CORPUSCULAR HGB CONC 32.5 % (32.0-36.0); PLATELET COUNT 256 TH/MM3 (150-450); RED CELL DISTRIBUTION WIDTH 14.2 % (11.6-17.2); WHITE BLOOD COUNT 3.3 TH/MM3 (4.0-11.0)
[2017-04-04 08:16] LABS: HEMO FLAGS AUTO DIFF
[2017-04-04 08:36] LABS: ALKALINE PHOSPHATASE 53 U/L (45-117); ALT (GPT) 11 U/L (12-78); ANION GAP 7 MEQ/L (5-15); AST (GOT) 10 U/L (15-37); BICARBONATE 24.2 MEQ/L (21.0-32.0); BLOOD UREA NITROGEN 13 MG/DL (7-18); CHLORIDE 114 MEQ/L (98-107); GLOMERULAR FILTRATION RATE 62 ML/MIN (>89); POTASSIUM 3.7 MEQ/L (3.5-5.1); SODIUM (NA) 145 MEQ/L (136-145); TOTAL BILIRUBIN ADULT 0.3 MG/DL (0.2-1.0)
[2017-04-04 08:59] LABS: BANDS 14 % (0-6); EOSINOPHILS 2 % (0-4); NEUTROPHIL # MANUAL DIFF 2.4 TH/MM3 (1.8-7.7); POLYS (SEG NEUTROPHILS) 59 % (16-70); WBC DIFF SAMPLE 100
[2017-04-04 09:00] LABS: OVALOCYTES 1+ (NORMAL); PLATELET ESTIMATE SMEAR NORMAL (NORMAL); PLATELET MORPHOLOGY NORMAL (NORMAL); SCAN/DIFF FINAL DIFF MANUAL
--- NOTE | 2017-04-04 10:07 | HHI.DS ---
Discharge Summary Admission Date Apr 01, 2017 at 16:36 Discharge Date: Apr 04, 2017 Admitting Diagnosis Chest pain, intractable abdominal pain (1) Heart transplant status ICD Codes: Z94.1 - Heart transplant status (2) CHF (congestive heart failure) ICD Codes: I50.9 - Heart failure, unspecified Status: Acute (3) CAD (coronary artery disease) ICD Codes: I25.10 - Atherosclerotic heart disease of [place] coronary artery without angina pectoris Status: Acute (4) Afib ICD Codes: I48.91 - Unspecified atrial fibrillation Status: Acute (5) High cholesterol ICD Codes: E78.0 - Pure hypercholesterolemia Status: Acute (6) Chronic leg pain ICD Codes: M79.606 - Pain in leg, unspecified; G89.29 - Other chronic pain Status: Acute (7) History of heart attack ICD Codes: I25.2 - Old myocardial infarction Status: Acute (8) Nutrition, metabolism, and development symptoms ICD Codes: R63.8 - Other symptoms and signs concerning food and fluid intake Status: Acute (9) Chronic back pain ICD Codes: M54.9 - Dorsalgia, unspecified; G89.29 - Other chronic pain Status: Acute (10) Chest pain ICD Codes: R07.9 - Chest pain, unspecified Status: Acute (11) Depression ICD Codes: F32.9 - Major depressive disorder, single episode, unspecified Status: Acute (12) Anemia ICD Codes: D64.9 - Anemia, unspecified Status: Acute CBC/BMP: 04/04/17 0742 04/04/17 0742 Significant Findings Laboratory Tests Test 04/01/17 12:30 04/01/17 18:40 04/01/17 23:54 04/02/17 09:46 Red Blood Count 4.01 MIL/MM3 (4.50-5.90) 3.48 MIL/MM3 (4.50-5.90) Hemoglobin 12.6 GM/DL (13.0-17.0) 10.9 GM/DL (13.0-17.0) Hematocrit 37.9 % (39.0-51.0) 32.9 % (39.0-51.0) Monocytes (%) (Auto) 10.2 % (0.0-8.0) Lymphocytes # (Auto) 0.9 TH/MM3 (1.0-4.8) Band Neutrophils % 7 % (0-6) Monocytes % 12 % (0-8) 15 % (0-8) Activated Partial Thromboplast Time 24.1 SEC (24.3-30.1) Blood Urea Nitrogen 21 MG/DL (7-18) Creatinine 1.78 MG/DL (0.60-1.30) Calcium Level 8.4 MG/DL (8.5-10.1) 7.8 MG/DL (8.5-10.1) Potassium Level 3.3 MEQ/L (3.5-5.1) Chloride Level 112 MEQ/L (98-107) 114 MEQ/L (98-107) Carbon Dioxide Level 19.8 MEQ/L (21.0-32.0) Estimat Glomerular Filtration Rate 40 ML/MIN (>89) 62 ML/MIN (>89) Alanine Aminotransferase (ALT/SGPT) 10 U/L (12-78) Troponin I LESS THAN 0.02 NG/ML White Blood Count 3.7 TH/MM3 (4.0-11.0) Metamyelocytes 2 % (0-1) Dohle Bodies PRESENT (NONE SEEN) Ovalocytes 1+ (NORMAL) Magnesium Level 1.3 MG/DL (1.5-2.5) B-Type Natriuretic Peptide 208 PG/ML (0-100) Test 04/03/17 07:05 04/03/17 09:00 04/03/17 14:45 04/04/17 07:42 White Blood Count 3.5 TH/MM3 (4.0-11.0) 3.3 TH/MM3 (4.0-11.0) Red Blood Count 3.20 MIL/MM3 (4.50-5.90) 3.20 MIL/MM3 (4.50-5.90) Hemoglobin 10.2 GM/DL (13.0-17.0) 9.9 GM/DL (13.0-17.0) Hematocrit 30.0 % (39.0-51.0) 30.4 % (39.0-51.0) Band Neutrophils % 8 % (0-6) 14 % (0-6) Myelocytes 1 % (0-0) Ovalocytes 1+ (NORMAL) 1+ (NORMAL) Creatinine 1.32 MG/DL (0.60-1.30) Calcium Level 7.8 MG/DL (8.5-10.1) 8.0 MG/DL (8.5-10.1) Chloride Level 114 MEQ/L (98-107) 114 MEQ/L (98-107) Estimat Glomerular Filtration Rate 56 ML/MIN (>89) 62 ML/MIN (>89) B-Type Natriuretic Peptide 234 PG/ML (0-100) Stool C. difficile Toxin (PCR) POSITIVE (NEGATIVE) Monocytes % 9 % (0-8) Random Glucose 113 MG/DL (74-106) Total Protein 5.2 GM/DL (6.4-8.2) Albumin 2.6 GM/DL (3.4-5.0) Aspartate Amino Transf (AST/SGOT) 10 U/L (15-37) Alanine Aminotransferase (ALT/SGPT) 11 U/L (12-78) Lipase 68 U/L (73-393) PE at Discharge GENERAL: SKIN: Warm and dry. HEAD: Atraumatic. Normocephalic. EYES: Pupils equal and round. No scleral icterus. No injection or drainage. ENT: No nasal bleeding or discharge. Mucous membranes pink and moist. NECK: Trachea midline. No JVD. CARDIOVASCULAR: Regular rate and rhythm. RESPIRATORY: No accessory muscle use. Clear to auscultation. Breath sounds equal bilaterally. GASTROINTESTINAL: Abdomen soft, non-tender, nondistended. Hepatic and splenic margins not palpable. MUSCULOSKELETAL: Extremities without clubbing, cyanosis, or edema. No obvious deformities. NEUROLOGICAL: Awake and alert. No obvious cranial nerve deficits. Motor grossly within normal limits. 3 out of 5 muscle strength in the arms and legs. Normal speech. PSYCHIATRIC: Appropriate mood and affect; insight and judgment normal. Hospital Course Chest pain/shortness of breath, with ischemic cardiomyopathy s/p heart transplant Abdominal pain/nausea, vomiting, and diarrhea: History of surgery for pancreatic cancer. C DIF History of Ischemic cardiomyopathy with heart transplant: KAREN on CKD stage III: secondary to dehydration from diarrhea. Hypokalemia: CVA, COPD, depression Hypertension The endoscopic ultrasound of the pancreas from head to tail reveals normal pancreatic parenchyma with no irregularities with normal pancreatic duct Common bile duct appears to be within normal limits with no filling defects PT SIGNING OUT AMA. CONF W HE AND HIS . [facility] AND WILL NOT STAY HERE ANY FURTHER. HE UNDERSTANDS THE CONCERN OF TXPLANT REJECTION AND HE NEEDS FURTHER WORKUP TODAY INCLUDING TACRO LEVELS, ECHO ETC. HE DOES AGREE TO SEE ME IN MY OFFICE TOMORROW AND MAYBE HE WILL BE CALM AND I CAN HELP MORE. Discharge Instructions Follow up Referrals: Cardiology - 2-3 Days PCP Follow-up - Office today New Medications: Metronidazole (Flagyl) 500 Mg Tab 500 MG PO Q8HR for c dif for 10 Days, #30 TAB Continued Medications: Clotrimazole Crystal (Clotrimazole Crystal) 10 Mg Troc 10 MG PO Q6HR for Fungal Infection, CRYSTAL 0 Refills Fluoxetine (Fluoxetine) 60 Mg Tab 60 MG PO DAILY, #30 TAB 0 Refills Hydralazine HCl (Hydralazine HCl) 25 Mg Tablet 25 MG PO Q8HR for Blood Pressure Management, #60 TAB 0 Refills Multiple Vitamin (Multiple Vitamin) 1 Tab 1 TAB PO DAILY for Nutritional Supplement, TAB 0 Refills Mycophenolate (Cellcept) 250 Mg Cap 750 MG PO BID for Immunosuppression, #180 CAP 0 Refills Oxycodone (Oxycodone) 5 Mg Cap 5 MG PO Q6H PRN for PAIN, CAP 0 Refills Pravastatin (Pravastatin) 20 Mg Tab 20 MG PO DAILY for Cholesterol Management, #30 TAB 0 Refills Prednisone (Prednisone) 2.5 Mg Tab 2.5 MG PO DAILY, TAB 0 Refills Tacrolimus (Prograf) 0.5 Mg Cap 1.5 MG PO BID for Prevent Transplant Reject, #60 CAP 0 Refills Valganciclovir (Valcyte) 450 Mg Tab 450 MG PO DAILY for Mgmt Viral Infection, #30 TAB 0 Refills Discontinued Medications: Cefepime Inj (Cefepime Inj) 2 Gram Inj 2 GM IV Q12HR for Infection, BAG Daptomycin Inj (Daptomycin Inj) 500 Mg Vial 500 MG IV Q24H for Infection, VIAL 0 Refills Must dilute in appropriate IV Fluid prior to administration Pantoprazole (Pantoprazole) 40 Mg Tab 40 MG PO DAILY for Reflux, #30 TAB 0 Refills Colten Key MD Apr 04, 2017 10:07
[2017-04-04] MEDS ORDERED: METR-1 PO (10:10)
--- NOTE | 2017-04-04 10:12 | HHI.DCPOC ---
Discharge Care Plan Diagnosis: (1) History of heart attack (2) Nutrition, metabolism, and development symptoms (3) Afib (4) Chronic leg pain (5) Chronic back pain (6) High cholesterol (7) Chest pain (8) Depression (9) CAD (coronary artery disease) (10) Anemia (11) CHF (congestive heart failure) Goals to Promote Your Health * To prevent worsening of your condition and complications * To maintain your health at the optimal level Directions to Meet Your Goals Take your medications as prescribed Follow your dietary instruction Follow activity as directed Keep your appointments as scheduled Take your immunizations and boosters as scheduled If your symptoms worsen call your PCP, if no PCP go to Urgent Care Center or Emergency Room Smoking is Dangerous to Your Health. Avoid second hand smoke Call the 24-hour hour crisis hotline for domestic abuse at Colten Key MD Apr 04, 2017 10:12
--- NOTE | 2017-04-04 10:14 | HHI.GIFU ---
Subjective Remarks Resting in bed. Continues to have some abdominal cramping. One loose stool yesterday, none so far today. No n/v. (Pamella Blancas) Objective Vitals I&O Vital Signs Date Time Temp Pulse Resp B/P (MAP) Pulse Ox O2 Delivery O2 Flow Rate FiO2 04/04/17 04:15 98.0 72 17 104/58 (73) 94 04/04/17 04:00 69 04/04/17 00:31 12 04/04/17 00:00 77 04/03/17 23:31 12 04/03/17 23:09 98.3 75 19 117/65 (82) 97 04/03/17 20:45 21 04/03/17 20:03 97.9 79 18 112/65 (81) 98 04/03/17 20:00 79 04/03/17 18:00 72 04/03/17 12:53 97.1 72 16 120/73 (89) 99 I/O 04/03/17 04/03/17 04/03/17 04/04/17 04/04/17 04/04/17 07:00 15:00 23:00 07:00 15:00 23:00 Intake Total 600 ml Output Total 825 ml Balance -225 ml Other 600 ml Output Urine Total 825 ml # Voids 2 # Bowel Movements 1 Laboratory Laboratory Tests Test 04/03/17 14:45 04/04/17 07:42 Carcinoembryonic Antigen 1.5 CA 19-9 Antigen 26.4 White Blood Count 3.3 Red Blood Count 3.20 Hemoglobin 9.9 Hematocrit 30.4 Mean Corpuscular Volume 94.9 Mean Corpuscular Hemoglobin 30.9 Mean Corpuscular Hemoglobin Concent 32.5 Red Cell Distribution Width 14.2 Platelet Count 256 Mean Platelet Volume 7.8 CBC Comment AUTO DIFF Differential Total Cells Counted 100 Neutrophils % (Manual) 59 Band Neutrophils % 14 Lymphocytes % 16 Monocytes % 9 Eosinophils % 2 Neutrophils # (Manual) 2.4 Differential Comment FINAL DIFF MANUAL Platelet Estimate NORMAL Platelet Morphology Comment NORMAL Ovalocytes 1+ Blood Urea Nitrogen 13 Creatinine 1.21 Random Glucose 113 Total Protein 5.2 Albumin 2.6 Calcium Level 8.0 Alkaline Phosphatase 53 Aspartate Amino Transf (AST/SGOT) 10 Alanine Aminotransferase (ALT/SGPT) 11 Total Bilirubin 0.3 Sodium Level 145 Potassium Level 3.7 Chloride Level 114 Carbon Dioxide Level 24.2 Anion Gap 7 Estimat Glomerular Filtration Rate 62 Lipase 68 Date/Time Source Procedure Growth Status 04/03/17 09:00 Stool Stool - Final NO ENTERIC PATHOGENS DETECTED BY PCR... Complete Imaging Last Impressions CT Angiography 04/02/17 0000 Signed Impressions: Service Date/Time: Sunday, April 02, 2017 17:05 - CONCLUSION: 1. 9 mm noncalcified nodule within the right lower lobe posteriorly which is indeterminate. PET/CT scan and/or follow-up CT of the chest in three months is recommended for this indeterminate nodule. 2. Scattered bibasilar interstitial infiltrates as well as right upper lobe posterior interstitial infiltrate which are nonspecific. 3. Cardiomegaly. 4. Granulomatous changes involving the right lung and pretracheal as well as subcarinal mediastinum. 5. No evidence of pulmonary embolism. 6. Posterior pleural thickening and pleural calcifications bilaterally. Nelson Bird MD Chest CT 04/01/17 0000 Signed Impressions: Service Date/Time: Saturday, April 01, 2017 14:15 - CONCLUSION: 1. Focal mixed interstitial and groundglass opacities in the posterior right upper lobe. This appears more chronic and may reflect sequela of prior inflammation/infection. However, developing or atypical infection cannot be entirely excluded. Comparisons with prior exams would be beneficial in further evaluation. 2. Mild bibasilar groundglass opacities likely reflecting atelectasis. Again, developing or atypical infection cannot be entirely excluded. Comparisons with prior exams would be beneficial in further evaluation. 3. Scattered granulomas and calcified mediastinal nodes consistent with prior granulomatous disease. 4. Calcified bilateral lower lobe pleural plaques. 1. Roberto Ca MD Abdomen/Pelvis CT 04/01/17 0000 Signed Impressions: Service Date/Time: Saturday, April 01, 2017 14:13 - CONCLUSION: 1. Slight soft tissue prominence and stranding in the pancreatic head region. Findings are nonspecific but may reflect acute pancreatitis. Correlation with laboratory and clinical exam is recommended. 2. Nondistended fluid-filled colon without evidence for gross colonic wall thickening. This finding is also nonspecific and likely not clinically significant. However, early developing colitis in immunocompromised patient cannot be entirely excluded. Clinical correlation is recommended. Roberto Ca MD Physical Exam HEENT: Normocephalic; atraumatic; no jaundice. CHEST: CTA CARDIAC: RRR ABDOMEN: Soft, mildly, mild to moderate tenderness; no hepatosplenomegaly; bowel sounds are present in all four quadrants. EXTREMITIES: No clubbing, cyanosis, or edema. SKIN: Normal; no rash; no jaundice. ORTHOPHOTO TECH/DRAFTSMAN: No focal deficits; alert and oriented times three. (Pamella Blancas) Assessment and Plan Plan ASSESSMENT: - Abdominal pain, possible pancreatitis. Pt states that he was hospitalized at [facility] 3-4 weeks ago and developed some complications requiring some procedure on the pancreas. Records have been requested. CT Scan abdomen and pelvis without IV contrast (04/01/17)---> Slightly soft tissue prominence and stranding in the pancreatic head region. Findings are nonspecific but may reflux acute pancreatitis. Correlation with laboratory and clinical exam is recommended, nondistended fluid filled colon without evidence for gross colonic wall thickening. This finding is also nonspecific and likely not clinically significant. However, early developing colitis in immunocompromised patient cannot be entirely excluded. Clinical correlation is recommended. LFT, Lipase unremarkable. Clinically, still with diffuse mild to moderate tenderness on exam and c/o abdominal pain with associated n/ v. S/P EUS (04/03/17)---> unremarkable EUS of the pancreas and biliary system. PPI. Zofran prn. - CDiff Diarrhea. CT as above. CDiff (+), Epid 027 (-). Pt reports one prior episode of this "a long time ago." Add Flagyl. - GERD. PPI - Anemia, normocytic. 9.9/30.4. No obvious blood loss. - Ischemic cardiomyopathy, s/p heart transplant. Per attending. Cellcept, prograf - HTN, Hyperlipidemia, COPD, Depression per attending. PLAN: - DANIEL - Add Flagyl 500mg po q8h - Cont. PPI - Monitor labs - Further recommendations to follow based on results of above - Pt seen and examined by Dr. Flor and myself and this note is written on his behalf (Pamella Blancas) Physician Comments Patient seen and examined Agree with above Continue with current supportive care Monitor labs (Frankie Flor MD) Pamella Blancas Apr 04, 2017 10:14 Frankie Flor MD Apr 04, 2017 11:41
[2017-04-04] MEDS ORDERED: metroNIDAZOLE 500 MG TAB PO SCH (14:00)
== END 2017-04-04 12:06 | disposition left against medical advice (07) ==
LOC: NEPC 11:35 → NEDA 16:36 → NEPHCDU 18:16
PROVIDERS: ADMIT Family Medicine; ATTEND Family Medicine
DX: I50.9 Heart failure, unspecified (principal); I48.91 Unspecified atrial fibrillation; I25.10 Atherosclerotic heart disease of native coronary artery without angina pectoris; I13.0 Hypertensive heart and chronic kidney disease with heart failure and stage 1 through stage 4 chronic kidney disease, or unspecified chronic kidney disease; N18.3 Chronic kidney disease, stage 3 (moderate); N17.9 Acute kidney failure, unspecified; I25.2 Old myocardial infarction; M79.606 Pain in leg, unspecified; G89.29 Other chronic pain; D64.9 Anemia, unspecified; E87.6 Hypokalemia; E86.0 Dehydration; E78.00 Pure hypercholesterolemia, unspecified; K21.9 Gastro-esophageal reflux disease without esophagitis; J44.9 Chronic obstructive pulmonary disease, unspecified; F32.9 Major depressive disorder, single episode, unspecified; Z85.07 Personal history of malignant neoplasm of pancreas; G81.94 Hemiplegia, unspecified affecting left nondominant side; Z94.1 Heart transplant status; Z87.891 Personal history of nicotine dependence; Z79.01 Long term (current) use of anticoagulants
CPT/HCPCS: 00740; 43259; 71250; 71275; 74176; 80048; 80053; 80076; 82378; 83690; 83735; 83880; 84484; 85007; 85027; 85610; 85730; 86301; 87205; 87207; 87328; 87329; 87493; 87506; 93005; 96365; 96366; 96368; 96372; 96375; 96376; 97110; 97116; 97162; 99285; G0378; G8987; G8988; J0692; J0878; J1650; J2270; J2405; J3475; J7030; J7512; J7517; Q9967

== ENCOUNTER 2017-07-14 19:33 | Observation (INO) | payer MEDICARE, MEDICAID ==
[~2017-07-14] VITALS: Ht 185.4 cm; Wt 60.0 kg
[~2017-07-14 19:33] MED LIST changes: -ALLO100T PO; -ATOR40TA PO; +CLOT10TR PO; -COUM2.5T PO; -DUONI NEB; -FLUO40CA PO; +FLUO60TA PO; +HYDR-3799 PO; +METR-1 PO; +MULTTAB67 PO; +MYCO250 PO; +OXYC1CAP PO; -PACE200T4 PO; -PLAV75TA PO; -POTA20IN3 PO; +PRAV20TA2 PO; +PRED2.5T PO; +TACR0.5 PO; +VALG450 PO; -[UNRECOGNIZED DRUG - CODE] IV PUSH
[2017-07-14 19:40] VITALS: BP 117/105; PULSE 115; RESP 18; TEMP 97.8; O2SAT 99
[2017-07-14 19:41] VITALS: BP 169/88; PULSE 122; RESP 16; TEMP 98.2; O2SAT 97
[2017-07-14] MEDS ORDERED: MORPHINE SULFATE 2 MG/ML INJ IV PUSH ONE ×2 (19:45→21:00)
[2017-07-14] MEDS ORDERED: ONDANSETRON HCL 4 MG/2 ML VIAL IV PUSH ONE (19:45)
[2017-07-14] MEDS ORDERED: SODIUM CHLORIDE 0.9% FLUSH 10 ML FLUSH IVF PRN (19:45)
[2017-07-14 19:47] VITALS: O2SAT 99
--- NOTE | 2017-07-14 20:08 | RADRPT ---
EXAM DATE/TIME: 07/14/2017 19:50 [facility] COMPARISON: CHEST SINGLE AP, October 26, 2015, 15:21. INDICATIONS : Chest pain. MEDICAL HISTORY : Cerebrovascular disease. Cardiovascular disease. Chronic obstructive pulmonary disease. Hypertens ion. Pancreatic cancer. SURGICAL HISTORY : Appendectomy. Pacemaker. Heart transplant ENCOUNTER: Initial ACUITY: 2 days PAIN SCORE: 7/10 LOCATION: Bilateral chest FINDINGS: The lungs are clear without infiltrate, nodule, or mass. Heart and mediastinum are unremarkable. The re is old healed right clavicular fracture. There may be tiny bilateral pleural effusions. There are atherosclerotic calcifications of the aorta due to chronic atherosclerotic disease. CONCLUSION: Questionable tiny bilateral pleural effusions. Mykel Hernandez MD on July 14, 2017 at 20:06 Board Certified Radiologist. This report was verified electronically.
[2017-07-14 20:11] LABS: AUTOMATED NEUTROPHIL # 8.6 TH/MM3 (1.8-7.7); BASOPHIL # 0.1 TH/MM3 (0-0.2); BASOPHIL % 0.9 % (0.0-2.0); EOSINOPHIL % 0.1 % (0.0-4.0); HEMATOCRIT 44.5 % (39.0-51.0); HEMOGLOBIN 14.9 GM/DL (13.0-17.0); LYMPHOCYTE # 1.1 TH/MM3 (1.0-4.8); MEAN CELL VOLUME 82.7 FL (80.0-100.0); MEAN CORPUSCULAR HEMOGLOBIN 27.6 PG (27.0-34.0); MEAN CORPUSCULAR HGB CONC 33.4 % (32.0-36.0); MEAN PLATELET VOLUME 7.8 FL (7.0-11.0); MONO % 3.1 % (0.0-8.0); MONOCYTE # 0.3 TH/MM3 (0-0.9); NEUT % 84.9 % (16.0-70.0); PLATELET COUNT 432 TH/MM3 (150-450); RED BLOOD COUNT 5.38 MIL/MM3 (4.50-5.90); RED CELL DISTRIBUTION WIDTH 15.8 % (11.6-17.2); WHITE BLOOD COUNT 10.1 TH/MM3 (4.0-11.0)
--- NOTE | 2017-07-14 20:21 | PD ---
HPI Chief Complaint: Chest Pain Time Seen by Provider: 19:46 Travel History International Travel<30 days: No Contact w/Intl Traveler<30days: No Traveled to known affect area: No History of Present Illness HPI Patient is a 56-year-old male presenting to emergency department for evaluation of chest pain. Patient states the pain started 10 days ago, it is localized to dissipate the left breast. It has gotten progressively worse since it initiated. He also reports nausea and vomiting, shortness of breath. He denies any cough, fevers, chills. Patient reports compliance with all medications area and he states that he did call his lead mechanical engineer at [facility] in [place] on Sunday and he states that they wanted to schedule an appointment for him to be evaluated in the office. He states the chest pain radiates to his shoulder, it is a 7 out of 10. It is dull and aching. Pain is not relieved by anything, is exacerbated with deep breathing and movement. Patient has a history of a heart transplant secondary to severe cardiomyopathy. Past medical history is also significant for atrial fibrillation, pancreatic cancer, acute renal failure, anxiety, CHF, hypertension, pulmonary embolism. PFSH Past Medical History Arthritis: Yes Atrial Fibrillation: Yes Anxiety: Yes Depression: Yes Cardiac Catheterization: Yes Cardiomyopathy: Yes High Cholesterol: Yes Chest Pain: Yes Congestive Heart Failure: Yes COPD: Yes Cerebrovascular Accident: Yes (POSSIBLE, WAS PARLYSIS OF LEFT SIDE OF BODY MAR 2014) Gastrointestinal Disorders: Yes GERD: Yes Gout: Yes Genitourinary: Yes Hypertension: Yes Implanted Vascular Access Dvce: Yes Neurologic: Yes Renal Failure: Yes (HX. ARF) Past Surgical History Abdominal Surgery: Yes (APPENDECTOMY) AICD: Yes Appendectomy: Yes Body Medical Devices: CARDIAC STENTS Cardiac Surgery: Yes (heart transplant) Coronary Stent: Yes (13 STENTS) Pacemaker: Yes (DEFIBRILLATOR 2013) Social History Alcohol Use: No Tobacco Use: No Substance Use: No Allergies-Medications (Allergen,Severity, Reaction): Coded Allergies: diazepam (Unverified Allergy, Severe, 07/14/17) lorazepam (Unverified Allergy, Severe, 07/14/17) Reported Meds & Prescriptions Reported Meds & Active Scripts Active Reported Prograf (Tacrolimus) 0.5 Mg Cap 1.5 Mg PO BID Oxycodone (Oxycodone HCl) 5 Mg Cap 5 Mg PO Q6H PRN Cellcept (Mycophenolate Mofetil) 250 Mg Cap 750 Mg PO BID Multiple Vitamin 1 Tab 1 Tab PO DAILY Hydralazine HCl 25 Mg Tablet 25 Mg PO Q8HR Fluoxetine (Fluoxetine HCl) 60 Mg Tab 60 Mg PO DAILY Review of Systems Except as stated in HPI: all other systems reviewed are Neg HENT: No: Headaches, Lightheadedness Cardiovascular: Positive: Chest Pain or Discomfort, Tachycardia, No: Dyspnea on exertion Respiratory: No: Cough, Shortness of Breath Gastrointestinal: Positive: Nausea, Vomiting, No: Abdominal Pain Musculoskeletal: No: Myalgias Neurologic: No: Weakness, Dizziness, Syncope, Focal Abnormalities Physical Exam Narrative GENERAL: Thin, well-developed, alert male. SKIN: Warm and dry. HEAD: Atraumatic. Normocephalic. EYES: Pupils equal and round. No scleral icterus. No injection or drainage. ENT: No nasal bleeding or discharge. Mucous membranes pink and moist. NECK: Trachea midline. No JVD. CARDIOVASCULAR: Tachycardic, 2/6 systolic murmur RESPIRATORY: Tachypneic, decreased breath sounds in bases. No wheezes, rhonchi , rales noted. GASTROINTESTINAL: Abdomen soft, non-tender, nondistended. Hepatic and splenic margins not palpable. Positive Bowel sounds, no rebound, no guarding. MUSCULOSKELETAL: Extremities without clubbing, cyanosis, or edema. No obvious deformities. NEUROLOGICAL: Awake and alert. No obvious cranial nerve deficits. Motor grossly within normal limits. Five out of 5 muscle strength in the arms and legs. Normal speech. PSYCHIATRIC: Appropriate mood and affect; insight and judgment normal. Data Data Last Documented VS Vital Signs Date Time Temp Pulse Resp B/P (MAP) Pulse Ox O2 Delivery O2 Flow Rate FiO2 07/14/17 22:43 95 18 173/86 (115) 100 Room Air 07/14/17 19:41 98.2 Orders Orders Complete Blood Count With Diff (07/14/17 19:44) Comprehensive Metabolic Panel (07/14/17 19:44) B-Type Natriuretic Peptide (07/14/17 19:44) D-Dimer (07/14/17 19:44) Act Partial Throm Time (Ptt) (07/14/17 19:44) Prothrombin Time / Inr (Pt) (07/14/17 19:44) Magnesium (Mg) (07/14/17 19:44) Ckmb (Isoenzyme) Profile (07/14/17 19:44) Troponin I (07/14/17 19:44) Iv Access Insert/Monitor (07/14/17 19:44) Electrocardiogram (07/14/17 19:44) Ecg Monitoring (07/14/17 19:44) Oximetry (07/14/17 19:44) Oxygen Administration (07/14/17 19:44) Chest, Single Ap (07/14/17 19:44) Ct Pulmonary Angiogram (07/14/17 19:44) Sodium Chloride 0.9% Flush (Ns Flush) (07/14/17 19:45) Morphine Inj (Morphine Inj) (07/14/17 19:45) Ondansetron Inj (Zofran Inj) (07/14/17 19:45) Morphine Inj (Morphine Inj) (07/14/17 21:00) Sodium Chlor 0.9% 1000 Ml Inj (Ns 1000 M (07/14/17 21:00) Ct Abd/Pel W Iv Contrast(Rout) (07/14/17 ) Iodixanol 320 Inj (Rad Ct) (Visipaque 32 (07/14/17 22:25) Admit Order (Ed Use Only) (07/14/17 22:44) Labs Laboratory Tests Test 07/14/17 19:59 White Blood Count 10.1 TH/MM3 Red Blood Count 5.38 MIL/MM3 Hemoglobin 14.9 GM/DL Hematocrit 44.5 % Mean Corpuscular Volume 82.7 FL Mean Corpuscular Hemoglobin 27.6 PG Mean Corpuscular Hemoglobin Concent 33.4 % Red Cell Distribution Width 15.8 % Platelet Count 432 TH/MM3 Mean Platelet Volume 7.8 FL Neutrophils (%) (Auto) 84.9 % Lymphocytes (%) (Auto) 11.0 % Monocytes (%) (Auto) 3.1 % Eosinophils (%) (Auto) 0.1 % Basophils (%) (Auto) 0.9 % Neutrophils # (Auto) 8.6 TH/MM3 Lymphocytes # (Auto) 1.1 TH/MM3 Monocytes # (Auto) 0.3 TH/MM3 Eosinophils # (Auto) 0.0 TH/MM3 Basophils # (Auto) 0.1 TH/MM3 CBC Comment DIFF FINAL Differential Comment Prothrombin Time 11.4 SEC Prothromb Time International Ratio 1.1 RATIO Activated Partial Thromboplast Time 26.4 SEC D-Dimer Quantitative (PE/DVT) 0.57 MG/L FEU Blood Urea Nitrogen 28 MG/DL Creatinine 1.75 MG/DL Random Glucose 132 MG/DL Total Protein 8.5 GM/DL Albumin 4.4 GM/DL Calcium Level 9.7 MG/DL Magnesium Level 1.6 MG/DL Alkaline Phosphatase 128 U/L Aspartate Amino Transf (AST/SGOT) 15 U/L Alanine Aminotransferase (ALT/SGPT) 10 U/L Total Bilirubin 0.8 MG/DL Sodium Level 139 MEQ/L Potassium Level 4.0 MEQ/L Chloride Level 103 MEQ/L Carbon Dioxide Level 23.5 MEQ/L Anion Gap 13 MEQ/L Estimat Glomerular Filtration Rate 41 ML/MIN Total Creatine Kinase 60 U/L Troponin I LESS THAN 0.02 NG/ML B-Type Natriuretic Peptide 49 PG/ML MDM Medical Decision Making Medical Screen Exam Complete: Yes Emergency Medical Condition: Yes Medical Record Reviewed: Yes Interpretation(s) Vital Signs Date Time Temp Pulse Resp B/P (MAP) Pulse Ox O2 Delivery O2 Flow Rate FiO2 07/14/17 19:47 99 Room Air 07/14/17 19:47 99 Room Air 07/14/17 19:44 105 18 99 Room Air 07/14/17 19:41 98.2 122 16 169/88 (115) 97 Room Air 07/14/17 19:40 97.8 115 18 117/105 (109) 99 Differential Diagnosis ACS versus AMI versus PE versus bronchitis versus pneumonia versus metabolic abnormality versus other Narrative Course Patient presented for evaluation of chest pain. He was tachycardic and tachypneic on arrival. Chest pain is been ongoing for 10 days. Patient has have a significant cardiac history as well as a history of pulmonary embolism. Initial EKG shows sinus tachycardia with a right bundle-branch block. This was compared to prior and appears unchanged. Zofran and morphine ordered for pain. Labs and imaging ordered and pending. is at bedside, patient is resting comfortably. CBC with no acute abnormalities, chemistry with elevated BUN and creatinine 28/ 1.75 cardiac enzymes are negative 1 set. BNP is 49. D-dimer is 0.57, CT pulmonary angiogram is pending. Acute renal insufficiency is likely secondary to poor oral intake due to the nausea. Given 1 L of IV fluids. Electrolytes are otherwise unremarkable. Chest x-ray shows questionable tiny bilateral pleural effusions. CT pulmonary angiogram shows enlarging right lower lobe nodule suspicious for malignancy. CT of the abdomen and pelvis resulted with significant atherosclerotic disease of the distal aorta was almost 50% stenosis otherwise unremarkable examination. Discussed findings with my attending physician. Pulmonary nodule can be evaluated as outpatient. Patient will be placed in the chest pain center for further trending of his cardiac enzymes and for further workup as deemed necessary by lead mechanical engineer. Patient is agreeable to plan, he has been resting comfortably. He has had no further nausea in the emergency department. Diagnosis Primary Impression: Chest pain Qualified Codes: R07.9 - Chest pain, unspecified Additional Impressions: Pulmonary nodule Acute renal insufficiency Admitting Information Admitting Physician Requests: Observation Condition: Stable Khalida Mckeon Jul 14, 2017 20:21
[2017-07-14 20:29] LABS: INTERNATIONAL NORMALIZED RATIO 1.1 RATIO; PROTHROMBIN TIME - PATIENT 11.4 SEC (9.8-11.6)
[2017-07-14 20:30] LABS: ALT (GPT) 10 U/L (12-78)
[2017-07-14 20:35] LABS: D-DIMER 0.57 MG/L FEU (0.00-0.50)
[2017-07-14 20:41] LABS: ALBUMIN 4.4 GM/DL (3.4-5.0); ALKALINE PHOSPHATASE 128 U/L (45-117); AST (GOT) 15 U/L (15-37); BICARBONATE 23.5 MEQ/L (21.0-32.0); BLOOD UREA NITROGEN 28 MG/DL (7-18); CALCIUM 9.7 MG/DL (8.5-10.1); CHLORIDE 103 MEQ/L (98-107); CREATININE 1.75 MG/DL (0.60-1.30); GLOMERULAR FILTRATION RATE 41 ML/MIN (>89); GLUCOSE,RANDOM 132 MG/DL (74-106); MAGNESIUM 1.6 MG/DL (1.5-2.5); SODIUM (NA) 139 MEQ/L (136-145); TOTAL BILIRUBIN ADULT 0.8 MG/DL (0.2-1.0); TOTAL PROTEIN 8.5 GM/DL (6.4-8.2); TROPONIN I LESS THAN 0.02 NG/ML (0.02-0.05)
[2017-07-14 20:56] VITALS: BP 168/98; PULSE 99; RESP 15; O2SAT 99
[2017-07-14] MEDS ORDERED: SODIUM CHLOR 0.9% 1000 ML INJ 1,000 ML IV ONE (21:00)
[2017-07-14] MEDS ORDERED: IODIXANOL 320 MG/ML 10 ML VIAL (for Rad CT) IVCONTRAST ONE (22:25)
--- NOTE | 2017-07-14 22:34 | EKG ---
Date Performed: 07/14/2017 Time Performed: 19:41:32 PTAGE: 56 years EKG: SINUS TACHYCARDIA RIGHT BUNDLE BRANCH BLOCK LEFT POSTERIOR FASCICULAR BLOCK ABNORMAL ECG PREVIOUS TRACING : 04/02/2017 02.25 Compared to the previous tracing, rate has increased DOCTOR: Jack Fischer Interpretating Date/Time 07/14/2017 22:33:56
--- NOTE | 2017-07-14 22:38 | RADRPT ---
EXAM DATE/TIME: 07/14/2017 22:02 [facility] COMPARISON: CT PULMONARY ANGIOGRAM, April 02, 2017, 17:05. INDICATIONS : Chest pain with shortness of breath. IV CONTRAST: 80 cc Visipaque (iodixanol) IV ; Cumulative dose for multiple exams. RADIATION DOSE: 15.91 CTDIvol (mGy) ; Combined studies - Thorax/Abdomen/Pelvis MEDICAL HISTORY : Cardiovascular disease. Myocardial infarction. Congestive heart failure.GERD. Hypertension. COPD. Acu te renal failure. SURGICAL HISTORY : Appendectomy. Pacemaker.Back surgery. Heart transplant. ENCOUNTER: Initial ACUITY: 1 day PAIN SCALE: 8/10 LOCATION: chest TECHNIQUE: Volumetric scanning of the chest was performed using a pulmonary embolism protocol MIP images were re constructed. Using automated exposure control and adjustment of the mA and/or kV according to patien t size, radiation dose was kept as low as reasonably achievable to obtain optimal diagnostic quality images. DICOM format image data is available electronically for review and comparison. Follow-up recommendations for detected pulmonary nodules are based at a minimum on nodule size and pa tient risk factors according to Fleischner Society Guidelines. FINDINGS: The previously seen right millimeter noncalcified nodule in the right lower lobe superior segmen t has enlarged measures 1.3 cm. Areas of parenchymal scarring in the right upper lobe and scattered a reas of parenchymal scarring bilaterally have not significantly changed. There is a tiny pericardial effusion. There is no evidence for PE for technique. CONCLUSION: Enlarging right lower lobe nodule suspicious for malignancy.Nabor Hernandez MD on July 14, 2017 at 22:33 Board Certified Radiologist. This report was verified electronically.
[2017-07-14 22:43] VITALS: BP 173/86; PULSE 95; RESP 18; O2SAT 100
--- NOTE | 2017-07-14 22:43 | RADRPT ---
EXAM DATE/TIME: 07/14/2017 22:02 [facility] COMPARISON: CT ABDOMEN & PELVIS W/O CONTRAST, April 01, 2017, 14:13. INDICATIONS : Abdominal pain with nausea, vomiting and diarrhea. IV CONTRAST: 80 cc Visipaque (iodixanol) IV ; Cumulative dose for multiple exams. ORAL CONTRAST: No oral contrast ingested. RADIATION DOSE: 15.91 CTDIvol (mGy) ; Combined studies - Thorax/Abdomen/Pelvis MEDICAL HISTORY : Cardiovascular disease. Myocardial infarction. Congestive heart failure.COPD. Hypertension. GERD. Acu te renal failure. SURGICAL HISTORY : Appendectomy. Pacemaker.Back surgery. Heart transplant. ENCOUNTER: Initial ACUITY: 1 day PAIN SCALE: 6/10 LOCATION: Bilateral abdomen TECHNIQUE: Volumetric scanning of the abdomen and pelvis was performed. Using automated exposure control and ad justment of the mA and/or kV according to patient size, radiation dose was kept as low as reasonably achievable to obtain optimal diagnostic quality images. DICOM format image data is available electro nically for review and comparison. FINDINGS: CT Abdomen: The liver, spleen, pancreas, kidneys, adrenals are unremarkable. Previously seen haziness surrounding the pancreas is no longer identified. There is no evidence for any appreciable pathologi patricio adenopathy, free fluid, or bowel obstruction. There is evidence for prior cholecystectomy. There are atherosclerotic calcifications of the aorta due to chronic atherosclerotic disease with almost 50 % narrowing of distal aorta prior to bifurcation. CT pelvis: There is no evidence for mass, abscess formation, or any significant adenopathy within the pelvis. CONCLUSION: Significant atherosclerotic disease of distal aorta with almost 50% stenosis and othe rwise unremarkable. Mykel Hernandez MD on July 14, 2017 at 22:36 Board Certified Radiologist. This report was verified electronically.
[2017-07-14] MEDS ORDERED: ASPIRIN 81 MG CHEW TAB PO ONE (23:00)
[2017-07-14] MEDS ORDERED: ONDANSETRON HCL 4 MG/2 ML VIAL IV PUSH PRN (23:00)
[2017-07-14] MEDS ORDERED: MORPHINE SULFATE 4 MG/ML INJ IV PUSH PRN (23:00)
[2017-07-14] MEDS ORDERED: NITROGLYCERIN 0.4 MG SL 25 TABS/BTL SL PRN (23:00)
[2017-07-14] MEDS ORDERED: SODIUM CHLORIDE 0.9% FLUSH 10 ML FLUSH IV FLUSH PRN (23:00)
[2017-07-14] MEDS ORDERED: ACETAMINOPHEN 500 MG CPLT PO PRN (23:00)
[2017-07-14] MEDS: MORPHINE SULFATE 2 MG/ML INJ IV PRN (23:04)
[2017-07-14 23:27] VITALS: O2SAT 100
[2017-07-14 23:48] LABS: TROPONIN I LESS THAN 0.02 NG/ML (0.02-0.05)
[2017-07-15] VITALS (8 sets, daily range): BP systolic 133–164; BP diastolic 78–86; PULSE 80–109; RESP 18; TEMP 98–98.7; O2SAT 96–98
[2017-07-15 02:00] LABS: TROPONIN I LESS THAN 0.02 NG/ML (0.02-0.05)
[2017-07-15] MEDS: MORPHINE SULFATE 2 MG/ML INJ IV PRN ×2 (03:27→10:50)
[2017-07-15] MEDS ORDERED: SODIUM CHLORIDE 0.9% FLUSH 10 ML FLUSH IV FLUSH SCH (09:00)
--- NOTE | 2017-07-15 10:48 | HHI.DCPOC ---
Discharge Care Plan Diagnosis: (1) Viral syndrome (2) Pulmonary nodule (3) Acute renal insufficiency Goals to Promote Your Health * To prevent worsening of your condition and complications * To maintain your health at the optimal level Directions to Meet Your Goals Take your medications as prescribed Follow your dietary instruction Follow activity as directed Keep your appointments as scheduled Take your immunizations and boosters as scheduled If your symptoms worsen call your PCP, if no PCP go to Urgent Care Center or Emergency Room Smoking is Dangerous to Your Health. Avoid second hand smoke Call the 24-hour hour crisis hotline for domestic abuse at Alisa Vaughan Jul 15, 2017 10:48
[2017-07-15] MEDS ORDERED: TACROLIMUS 0.5 MG CAP PO SCH (11:00)
[2017-07-15] MEDS ORDERED: MYCOPHENOLATE MOFETIL 250 MG CAP PO SCH (11:00)
[2017-07-15] MEDS ORDERED: FLUoxetine HCL 20 MG CAP PO SCH (11:00)
--- NOTE | 2017-07-15 11:09 | HHI.HP ---
HPI Service [facility] Primary Care Physician Colten Key MD Chief Complaint Nausea and vomiting two weeks and chest pain 2 days History of Present Illness 56 YO male status post cardiac transplant for severe ischemic cardiomyopathy. He had a large MD in [place] in 2013 complicated by a stroke and a pulmonary embolism. He moved here and was followed by Dr. Key and Dr. Lozano. Subsequently he was referred to [facility] for cardiac transplant which was carried out by Dr. Henry. 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 He was told this was not malignant. He has continued to do fairly well until about 2 weeks ago when he developed nausea, vomiting and diarrhea which has been protracted over the last two weeks with 3-4 episodes a day. Over the last couple of days he began to experience chest pain when he takes a deep breath or vomits. This pain radiates to his back. There are no other precipitating or relieving factors. He is also having some SIEGEL. He came to the ED to relieve his pain and be sure nothing bad was going on. He is scheduled for follow up in [place] on Sunday. Review of Systems Consitutional: COMPLAINS OF: Fatigue Cardiovascular: COMPLAINS OF: See HPI Gastrointestinal: COMPLAINS OF: Nausea, Vomiting, Change in bowel habits Psychiatric: COMPLAINS OF: Anxiety, Depression Hematologic: COMPLAINS OF: Bruising tendencies Past Family Social History Allergies: Coded Allergies: diazepam (Unverified Allergy, Severe, 07/14/17) lorazepam (Unverified Allergy, Severe, 07/14/17) Reported Medications Reported Meds & Active Scripts Active Reported Prograf (Tacrolimus) 0.5 Mg Cap 1.5 Mg PO BID Oxycodone (Oxycodone HCl) 5 Mg Cap 5 Mg PO Q6H PRN Cellcept (Mycophenolate Mofetil) 250 Mg Cap 750 Mg PO BID Multiple Vitamin 1 Tab 1 Tab PO DAILY Hydralazine HCl 25 Mg Tablet 25 Mg PO Q8HR Fluoxetine (Fluoxetine HCl) 60 Mg Tab 60 Mg PO DAILY Active Ordered Medications Current Medications Medications (Trade) Dose Ordered Sig/Jose Route Start Time Stop Time Status Last Admin (NS Flush) 2 ml UNSCH PRN IVF 07/14/17 19:45 (NS Flush) 2 ml UNSCH PRN IV FLUSH 07/14/17 23:00 (NS Flush) 2 ml BID IV FLUSH 07/15/17 09:00 (Tylenol) 500 mg Q4H PRN PO 07/14/17 23:00 (Zofran Inj) 4 mg Q6H PRN IV PUSH 07/14/17 23:00 07/15/17 03:27 (Nitrostat Sl) 0.4 mg Q5M PRN SL 07/14/17 23:00 (Morphine Inj) 2 mg Q4H PRN IV 07/14/17 23:15 07/15/17 03:27 Physical Exam Vital Signs Vital Signs Date Time Temp Pulse Resp B/P (MAP) Pulse Ox O2 Delivery O2 Flow Rate FiO2 07/15/17 08:07 80 07/15/17 07:22 98.0 85 18 133/80 (97) 97 07/15/17 05:07 98.7 92 18 148/80 (102) 96 07/15/17 04:00 87 07/15/17 01:20 93 07/15/17 01:08 98.3 95 18 153/78 (103) 97 07/15/17 00:02 07/15/17 00:02 98.7 97 18 164/86 (112) 98 Room Air 07/14/17 23:42 17 07/14/17 23:27 100 07/14/17 22:43 95 18 173/86 (115) 100 Room Air 07/14/17 20:56 99 15 168/98 (121) 99 Room Air 07/14/17 19:47 99 Room Air 07/14/17 19:47 99 Room Air 07/14/17 19:44 105 18 99 Room Air 07/14/17 19:41 98.2 122 16 169/88 (115) 97 Room Air 07/14/17 19:40 97.8 115 18 117/105 (109) 99 Physical Exam WNWD man in no acute distress resting comfortably in isolation HEENT TERE EOMI, balding, unshaved, edentulous but no lesions Neck No JVD, masses, nodes or bruits Chest Healed scar, BS decreased but clear without RWR CV RSR with no GRM, PMI is not displaces and no lift or thrill Abd Large midline scar, touchy but no Gor R and no masses EXT Without CCE Neuro Largly intact Cranial OK, motor grossly normal and equal Laboratory Laboratory Tests Test 07/14/17 19:59 07/14/17 22:06 07/15/17 01:30 White Blood Count 10.1 Red Blood Count 5.38 Hemoglobin 14.9 Hematocrit 44.5 Mean Corpuscular Volume 82.7 Mean Corpuscular Hemoglobin 27.6 Mean Corpuscular Hemoglobin Concent 33.4 Red Cell Distribution Width 15.8 Platelet Count 432 Mean Platelet Volume 7.8 Neutrophils (%) (Auto) 84.9 Lymphocytes (%) (Auto) 11.0 Monocytes (%) (Auto) 3.1 Eosinophils (%) (Auto) 0.1 Basophils (%) (Auto) 0.9 Neutrophils # (Auto) 8.6 Lymphocytes # (Auto) 1.1 Monocytes # (Auto) 0.3 Eosinophils # (Auto) 0.0 Basophils # (Auto) 0.1 CBC Comment DIFF FINAL Differential Comment Prothrombin Time 11.4 Prothromb Time International Ratio 1.1 Activated Partial Thromboplast Time 26.4 D-Dimer Quantitative (PE/DVT) 0.57 Blood Urea Nitrogen 28 Creatinine 1.75 Random Glucose 132 Total Protein 8.5 Albumin 4.4 Calcium Level 9.7 Magnesium Level 1.6 Alkaline Phosphatase 128 Aspartate Amino Transf (AST/SGOT) 15 Alanine Aminotransferase (ALT/SGPT) 10 Total Bilirubin 0.8 Sodium Level 139 Potassium Level 4.0 Chloride Level 103 Carbon Dioxide Level 23.5 Anion Gap 13 Estimat Glomerular Filtration Rate 41 Total Creatine Kinase 60 41 40 Troponin I LESS THAN 0.02 LESS THAN 0.02 LESS THAN 0.02 B-Type Natriuretic Peptide 49 Result Diagram: 07/14/17195807/14/171958 Imaging Small pulm effusions Nodule base of lungs ? Small pericardial effusion Course He has clearly had a recent bout of viral like illness with NV and diarrheal leading to some dehydration and pleuritic chest pain probably from protracted vomiting. he has RO for ACS and already has cardiac follow up evaluating scheduled at his transplant location at [facility] on Sunday this week so further evaluation at this time was felt inappropriate. We will hydrate, relieve the discomfort and provide information to [facility] as needed. OK to discharge Caprini VTE Risk Assessment Caprini VTE Risk Assessment: Mod/High Risk (score >= 2) Caprini Risk Assessment Model Point Value = 1 Point Value = 2 Point Value = 3 Point Value = 5 Age 41-60 Minor surgery BMI > 25 kg/m2 Swollen legs Varicose veins or History of unexplained or recurrent spontaneous Oral contraceptives or hormone replacement Sepsis (< 1 month) Serious lung disease, including pneumonia (< 1 month) Abnormal pulmonary function Acute myocardial infarction Congestive heart failure (< 1 month) History of inflammatory bowel disease Medical patient at bed rest Age 61-74 Arthroscopic surgery Major open surgery (> 45 min) Laparoscopic surgery (> 45 min) Malignancy Confined to bed (> 72 hours) Immobilizing plaster cast Central venous access Age >= 75 History of VTE Family history of VTE Factor V Leiden Prothrombin [id number] Lupus anticoagulant Anticardiolipin antibodies Elevated serum homocysteine Heparin-induced thrombocytopenia Other congenital or acquired thrombophilia Stroke (< 1 month) Elective arthroplasty Hip, pelvis, or leg fracture Acute spinal cord injury (< 1 month) Prophylaxis Regimen Total Risk Factor Score Risk Level Prophylaxis Regimen 0-1 Low Early ambulation 2 Moderate Order ONE of the following: *Sequential Compression Device (SCD) *Heparin 5000 units SQ BID 3-4 Higher Order ONE of the following medications: *Heparin 5000 units SQ TID *Enoxaparin/Lovenox 40 mg SQ daily (WT < 150 kg, CrCl > 30 mL/min) *Enoxaparin/Lovenox 30 mg SQ daily (WT < 150 kg, CrCl > 10-29 mL/min) *Enoxaparin/Lovenox 30 mg SQ BID (WT < 150 kg, CrCl > 30 mL/min) AND/OR *Sequential Compression Device (SCD) 5 or more Highest Order ONE of the following medications: *Heparin 5000 units SQ TID (Preferred with Epidurals) *Enoxaparin/Lovenox 40 mg SQ daily (WT < 150 kg, CrCl > 30 mL/min) *Enoxaparin/Lovenox 30 mg SQ daily (WT < 150 kg, CrCl > 10-29 mL/min) *Enoxaparin/Lovenox 30 mg SQ BID (WT < 150 kg, CrCl > 30 mL/min) AND *Sequential Compression Device (SCD) Assessment and Plan Problem List: (1) CAD (coronary artery disease) ICD Codes: I25.10 - Atherosclerotic heart disease of [place] coronary artery without angina pectoris Status: Chronic Plan: Has follow up scheduled with [facility] on Sunday (2) Depression ICD Codes: F32.9 - Major depressive disorder, single episode, unspecified Status: Chronic (3) High cholesterol ICD Codes: E78.0 - Pure hypercholesterolemia Status: Chronic (4) History of heart attack ICD Codes: I25.2 - Old myocardial infarction Status: Chronic (5) Chest pain ICD Codes: R07.9 - Chest pain, unspecified Status: Acute Plan: CP currently secondary to viral illness and protracted vomiting, possibly also pleuritis (small effusions on lungs) (6) Acute renal insufficiency ICD Codes: N28.9 - Disorder of kidney and ureter, unspecified Status: Acute Plan: IV hydration completed (7) Viral syndrome ICD Codes: B34.9 - Viral infection, unspecified Plan: Needs to FU with PCP if symptoms continue (8) Pulmonary nodule ICD Codes: R91.1 - Solitary pulmonary nodule Status: Acute Plan: He needs to make PCP and [facility] aware of this and seek FU with them. Problem Qualifiers (1) Chest pain: Qualified Codes: R07.9 - Chest pain, unspecified Kevin Jaramillo MD Jul 15, 2017 11:09
--- NOTE | 2017-07-15 12:55 | EKG ---
Date Performed: 07/15/2017 Time Performed: 01:14:54 PTAGE: 56 years EKG: Sinus rhythm MARKED RIGHT AXIS DEVIATION RIGHT BUNDLE BRANCH BLOCK AND POSSIBLE RIGHT VENTRICULAR HYPERTROPHY PREVIOUS TRACING : 07/14/2017 23.03 Compared to prior tracing no significant change DOCTOR: Jack Fischer Interpretating Date/Time 07/15/2017 12:54:54
--- NOTE | 2017-07-15 13:12 | EKG ---
Date Performed: 07/14/2017 Time Performed: 23:03:14 PTAGE: 56 years EKG: Sinus rhythm RIGHT BUNDLE BRANCH BLOCK AND POSSIBLE RIGHT VENTRICULAR HYPERTROPHY LEFT POSTERIOR FASCICULAR BLOCK POSSIBLE SEPTAL MYOCARDIAL INFARCTION ABNORMAL ECG PREVIOUS TRACING : 07/14/2017 19.41 Compared to prior tracing no significant change DOCTOR: Jack Fischer Interpretating Date/Time 07/15/2017 13:11:32
[2017-07-15] MEDS ORDERED: hydrALAZINE HCL 25 MG TAB PO SCH (14:00)
[2017-07-16] MEDS ORDERED: MULTIVITAMIN TAB PO SCH (09:00)
== END 2017-07-15 13:58 | disposition home or self-care (01) ==
LOC: NEPC 19:33 → NEDA 22:46 → NEPGCP 23:53
PROVIDERS: ADMIT Internal Medicine Interventional Cardiology; ATTEND Internal Medicine Interventional Cardiology
DX: B34.9 Viral infection, unspecified (principal); R91.1 Solitary pulmonary nodule; N28.9 Disorder of kidney and ureter, unspecified; R07.9 Chest pain, unspecified; R00.0 Tachycardia, unspecified; I11.0 Hypertensive heart disease with heart failure; I50.9 Heart failure, unspecified; I25.5 Ischemic cardiomyopathy; I25.811 Atherosclerosis of native coronary artery of transplanted heart without angina pectoris; I45.10 Unspecified right bundle-branch block; I48.91 Unspecified atrial fibrillation; J44.9 Chronic obstructive pulmonary disease, unspecified; E78.00 Pure hypercholesterolemia, unspecified; F32.9 Major depressive disorder, single episode, unspecified; K21.9 Gastro-esophageal reflux disease without esophagitis; I25.2 Old myocardial infarction; M10.9 Gout, unspecified; Z85.07 Personal history of malignant neoplasm of pancreas; Z86.711 Personal history of pulmonary embolism; Z86.73 Personal history of transient ischemic attack (TIA), and cerebral infarction without residual deficits
CPT/HCPCS: 71010; 71275; 74177; 80053; 82550; 83735; 83880; 84484; 85025; 85379; 85610; 85730; 93005; 96361; 96374; 96375; 96376; 99285; G0378; J2270; J2405; J7030; J7517; Q9967